=== PATIENT | male | born 1940 | race Caucasian/White ===

== ENCOUNTER → 2016-05-31 | Outpatient (CLI) | payer MEDICARE, OTHER ==
[~2016-05-31] MED LIST: ASPI81TA60 PO; BACITAB3 PO; BENI20TA3 PO; DIGO0.12 PO; FURO20TA2 PO; IBUP200C PO; INSUDET SC; LEVA250T PO; MEST60TA PO; METO-207 PO; MUCU400T8 PO; MYCO500T PO; NITR4PA TD; OXYC1TAB23 PO; PLAV75TA38 PO; PROBCAP4 PO; PROT1TAB2 PO; XARE20TA PO; [UNRECOGNIZED DRUG - CODE] PO
[2016-05-31 18:47] LABS: BASO % 0.7 % (0.0-1.0); EOS # 0.2 K/mm3 (0.0-0.50); LARGE UNSTAINED CELL # 0.2 K/mm3 (0.0-0.4); LARGE UNSTAINED CELL % 3.2 % (0.0-4.0); LYMPH # 1.7 K/mm3 (1.5-4.5); LYMPH % 28.5 % (24.0-44.0); MEAN CORPUSCULAR HEMOGLOBIN 27.4 pg (27.0-33.0); MEAN CORPUSCULAR HGB CONC 33.5 g/dl (32.0-36.5); MEAN CORPUSCULAR VOLUME 81.7 fl (80.0-96.0); MONO # 0.3 K/mm3 (0.0-0.8); MONO % 5.2 % (0.0-5.0); NEUTROPHILS # 3.5 K/mm3 (1.8-7.7); NEUTROPHILS % 58.4 % (36.0-66.0); PLATELET COUNT, AUTOMATED 237 k/mm3 (150-450); RED CELL DISTRIBUTION WIDTH 13.4 % (11.5-14.5)
== END | disposition home or self-care (01) ==
LOC: M LAB 18:00
PROVIDERS: ATTEND Psychiatry & Neurology Neurology
DX: G70.00 Myasthenia gravis without (acute) exacerbation (principal)

== ENCOUNTER 2016-07-15 14:26 | Emergency (ER) | payer MEDICARE, BC, OTHER ==
[~2016-07-15] VITALS: Ht 175.3 cm; Wt 104.3 kg
[2016-07-15] MEDS ORDERED: STOO100C PO (15:07)
[2016-07-15] MEDS ORDERED: NOVO70VL SC (15:07)
[2016-07-15] MEDS ORDERED: METO25TA74 PO (15:07)
[2016-07-15] MEDS ORDERED: TRAD5TAB PO (15:07)
[2016-07-15] MEDS ORDERED: RANO5TAB PO (15:07)
[2016-07-15] MEDS ORDERED: VITA100072 PO (15:07)
[2016-07-15] MEDS ORDERED: FLOM5CAP PO (15:07)
[2016-07-15] MEDS ORDERED: [UNRECOGNIZED DRUG - CODE] PO (15:07)
[2016-07-15] MEDS ORDERED: PROBCAP4 PO (15:07)
[2016-07-15] MEDS ORDERED: FEXO180T58 PO (15:07)
[2016-07-15] MEDS ORDERED: CALCD50TA PO (15:07)
[2016-07-15] MEDS ORDERED: FERR325T3 PO (15:07)
[2016-07-15] MEDS ORDERED: BENI20TA3 PO (15:07)
[2016-07-15] MEDS ORDERED: MECL-86 PO (15:07)
[2016-07-15] MEDS ORDERED: AMLO5TAB2 PO (15:07)
[2016-07-15 15:38] LABS: BASO % 0.6 % (0.0-1.0); EOS # 0.3 K/mm3 (0.0-0.50); EOS % 4.3 % (0.0-3.0); LARGE UNSTAINED CELL # 0.1 K/mm3 (0.0-0.4); LARGE UNSTAINED CELL % 1.9 % (0.0-4.0); LYMPH # 1.3 K/mm3 (1.5-4.5); LYMPH % 16.2 % (24.0-44.0); MEAN CORPUSCULAR HEMOGLOBIN 28.2 pg (27.0-33.0); MEAN CORPUSCULAR HGB CONC 34.9 g/dl (32.0-36.5); MEAN CORPUSCULAR VOLUME 80.9 fl (80.0-96.0); MONO # 0.5 K/mm3 (0.0-0.8); MONO % 7.4 % (0.0-5.0); NEUTROPHILS # 4.9 K/mm3 (1.8-7.7); NEUTROPHILS % 69.6 % (36.0-66.0); PLATELET COUNT, AUTOMATED 223 k/mm3 (150-450); RED CELL DISTRIBUTION WIDTH 13.2 % (11.5-14.5)
[2016-07-15 15:57] LABS: INR 1.32
[2016-07-15 16:05] LABS: ANION GAP 11 MEQ/L (8-16); BLOOD UREA NITROGEN 16 MG/DL (7-18); CALCIUM LEVEL 8.2 MG/DL (8.8-10.2); CARBON DIOXIDE LEVEL 23 MEQ/L (21-32); CHLORIDE LEVEL 108 MEQ/L (98-107); CREATININE FOR GFR 1.46 MG/DL (0.70-1.30); GLUCOSE, FASTING 122 MG/DL (83-110); POTASSIUM SERUM 4.2 MEQ/L (3.5-5.1); SODIUM LEVEL 142 MEQ/L (136-145)
[2016-07-15 16:15] LABS: DIGOXIN LEVEL 0.8 NG/ML (0.5-2.0)
[2016-07-15 20:18] VITALS: BP 165/78
--- NOTE | 2016-07-15 20:22 | ECGEPIP ---
Stationary ECG Study [facility] - ED Test Date: 2016-07-15 Pat Name: DOREEN RODRIGUEZ Department: Room: - Gender: M [employer]: zane : [id number] Requested By: ROSHAN Sánchez Order Number: [id number] Reading MD: Teri Hill Measurements Intervals [place] Rate: 66 P: 17 LA: 186 QRS: 67 QRSD: 105 T: 39 QT: 374 QTc: 393 Interpretive Statements SINUS RHYTHM NONSPECIFIC ST & T-WAVE ABNORMALITY INCREASED RATE 05/30/11 Electronically Signed On 07-15-2016 20:21:57 EST by Teri Hill
--- NOTE | 2016-07-16 07:58 | REP ---
CHEST, TWO VIEWS: Two views of the chest are performed and compared to the prior study of 05/30/2011. There is mild bibasilar fibrotic change. The heart does not appear to be significantly enlarged. The mediastinal silhouette is unchanged. Multiple sternal wires and mediastinal clips are present. A left dual-lead pacemaker is noted. There are degenerative changes of the spine. IMPRESSION: Stable chronic findings. No acute pulmonary disease. Signed by Tyler Patel MD 07/16/2016 04:10 P
--- NOTE | 2016-07-16 08:10 | REP ---
CT CHEST WITHOUT IV CONTRAST: CT chest is performed without IV contrast. Sagittal and coronal reconstruction images are performed. Comparison made with a prior study of 02/17/2013. There are scattered interstitial fibrotic changes which appear relatively stable bilaterally. There is diffuse bronchiectasis again seen. A 6 mm nodule in the left upper lobe is stable and benign. No infiltrates are seen. The heart is not enlarged. There is no pleural or pericardial effusion. Nonenlarged lymph nodes are seen in the mediastinum. There is no thoracic aortic aneurysm. Mild scattered atherosclerotic calcifications are present. Multiple sternal wires and mediastinal clips are present. Pacemaker leads are seen. In the visualized portions of the upper abdomen, no gross abnormality is seen. There are degenerative changes of the spine. IMPRESSION: Chronic lung changes appear relatively stable since the 2013 CT exam. No evidence of acute pulmonary disease. Signed by Tyler Patel MD 07/16/2016 04:11 P
== END 2016-07-15 20:32 | disposition home or self-care (01) ==
LOC: M ED 15:31
DX: J06.9 Acute upper respiratory infection, unspecified (principal); R06.02 Shortness of breath; I10 Essential (primary) hypertension; E11.9 Type 2 diabetes mellitus without complications; I48.91 Unspecified atrial fibrillation; K21.9 Gastro-esophageal reflux disease without esophagitis; D64.9 Anemia, unspecified; N40.0 Benign prostatic hyperplasia without lower urinary tract symptoms; G70.00 Myasthenia gravis without (acute) exacerbation; Z79.899 Other long term (current) drug therapy; Z79.4 Long term (current) use of insulin; Z79.01 Long term (current) use of anticoagulants; Z88.8 Allergy status to other drugs, medicaments and biological substances; Z87.891 Personal history of nicotine dependence

== ENCOUNTER → 2016-09-03 | Outpatient (CLI) | payer MEDICARE, BC, OTHER ==
[~2016-09-03] MED LIST changes: +AMLO5TAB2 PO; +CALCD50TA PO; +FERR325T3 PO; +FEXO180T58 PO; +FLOM5CAP PO; +MECL-86 PO; +METO25TA74 PO; +NOVO70VL SC; +RANO5TAB PO; +STOO100C PO; +TRAD5TAB PO; +VITA100072 PO
[2016-09-03 09:26] LABS: BASO # 0.1 K/mm3 (0.0-0.2); BASO % 0.9 % (0.0-1.0); EOS # 0.2 K/mm3 (0.0-0.50); EOS % 3.7 % (0.0-3.0); LARGE UNSTAINED CELL # 0.2 K/mm3 (0.0-0.4); LARGE UNSTAINED CELL % 2.7 % (0.0-4.0); LYMPH % 32.2 % (24.0-44.0); MEAN CORPUSCULAR HEMOGLOBIN 28.3 pg (27.0-33.0); MEAN CORPUSCULAR HGB CONC 33.5 g/dl (32.0-36.5); MEAN CORPUSCULAR VOLUME 84.4 fl (80.0-96.0); MONO # 0.4 K/mm3 (0.0-0.8); MONO % 6.7 % (0.0-5.0); NEUTROPHILS # 3.4 K/mm3 (1.8-7.7); NEUTROPHILS % 53.8 % (36.0-66.0); PLATELET COUNT, AUTOMATED 222 k/mm3 (150-450); RED CELL DISTRIBUTION WIDTH 13.6 % (11.5-14.5); WHITE BLOOD COUNT 6.3 K/mm3 (4.0-10.0)
== END ==
LOC: M LAB 08:51
PROVIDERS: ATTEND Psychiatry & Neurology Neurology
DX: G70.00 Myasthenia gravis without (acute) exacerbation (principal)

== ENCOUNTER → 2016-11-29 | Outpatient (CLI) | payer MEDICARE, BC, OTHER ==
[~2016-11-29] MED LIST changes: +BACITAB PO; -BACITAB3 PO; +BENI20TA18 PO; -BENI20TA3 PO; -IBUP200C PO; +IBUP200C10 PO; +LEVA1TAB PO; -LEVA250T PO; -METO-207 PO; +METO1TAB32 PO; +METO1TAB7 PO; -METO25TA74 PO; +PLAV1TAB2 PO; -PLAV75TA38 PO
[2016-11-29 12:14] LABS: BASO % 0.8 % (0.0-1.0); EOS # 0.2 K/mm3 (0.0-0.50); EOS % 3.1 % (0.0-3.0); LARGE UNSTAINED CELL # 0.2 K/mm3 (0.0-0.4); LARGE UNSTAINED CELL % 2.6 % (0.0-4.0); LYMPH # 1.9 K/mm3 (1.5-4.5); LYMPH % 30.6 % (24.0-44.0); MEAN CORPUSCULAR HEMOGLOBIN 28.3 pg (27.0-33.0); MEAN CORPUSCULAR HGB CONC 34.3 g/dl (32.0-36.5); MEAN CORPUSCULAR VOLUME 82.7 fl (80.0-96.0); MONO # 0.4 K/mm3 (0.0-0.8); MONO % 7.3 % (0.0-5.0); NEUTROPHILS # 3.2 K/mm3 (1.8-7.7); NEUTROPHILS % 55.6 % (36.0-66.0); PLATELET COUNT, AUTOMATED 216 k/mm3 (150-450); RED CELL DISTRIBUTION WIDTH 13.3 % (11.5-14.5); WHITE BLOOD COUNT 5.8 K/mm3 (4.0-10.0)
== END ==
LOC: M LAB 11:19
PROVIDERS: ATTEND Psychiatry & Neurology Neurology
DX: G70.00 Myasthenia gravis without (acute) exacerbation (principal)

== ENCOUNTER → 2018-07-29 | Outpatient (CLI) | payer MEDICARE, BC, OTHER ==
[~2018-07-29] MED LIST changes: -AMLO5TAB2 PO; +AMLO5TAB6 PO; +FLOM0.4C39 PO; -FLOM5CAP PO; -IBUP200C10 PO; +IBUP200C25 PO; -LEVA1TAB PO; +LEVA250T13 PO; -MUCU400T8 PO; +MUCU400T9 PO
[2018-07-29 15:49] LABS: BASO % 0.6 % (0.0-1.0); EOS # 0.3 10^3/uL (0.0-0.50); EOS % 3.6 % (0.0-3.0); HEMATOCRIT 41.1 % (42.0-52.0); HEMOGLOBIN 13.4 g/dl (13.5-17.5); LYMPH # 2.4 10^3/uL (1.5-4.5); LYMPH % 34.6 % (24.0-44.0); MEAN CORPUSCULAR HEMOGLOBIN 27.5 pg (27.0-33.0); MEAN CORPUSCULAR HGB CONC 32.6 g/dl (32.0-36.5); MEAN CORPUSCULAR VOLUME 84.4 fl (80.0-96.0); MONO # 0.8 10^3/uL (0.0-0.8); NEUTROPHILS # 3.4 10^3/uL (1.8-7.7); NEUTROPHILS % 48.8 % (36.0-66.0); PLATELET COUNT, AUTOMATED 244 10^3/uL (150-450); RED BLOOD COUNT 4.87 10^6/uL (4.30-6.10); WHITE BLOOD COUNT 6.9 10^3/uL (4.0-10.0)
== END ==
LOC: M LAB 15:27
PROVIDERS: ATTEND Psychiatry & Neurology Neurology
DX: G70.00 Myasthenia gravis without (acute) exacerbation (principal)

== ENCOUNTER → 2018-10-31 | Outpatient (CLI) | payer MEDICARE, BC, OTHER ==
[~2018-10-31] MED LIST changes: -NITR4PA TD; +VITA100018 PO; -VITA100072 PO; +[UNRECOGNIZED DRUG - CODE] TD
[2018-10-31 13:17] LABS: EOS # 0.4 10^3/uL (0.0-0.50); EOS % 5.5 % (0.0-3.0); HEMATOCRIT 39.9 % (42.0-52.0); HEMOGLOBIN 13.2 g/dl (13.5-17.5); LYMPH # 2.1 10^3/uL (1.5-4.5); LYMPH % 33.8 % (24.0-44.0); MEAN CORPUSCULAR HEMOGLOBIN 28.1 pg (27.0-33.0); MEAN CORPUSCULAR HGB CONC 33.1 g/dl (32.0-36.5); MEAN CORPUSCULAR VOLUME 84.9 fl (80.0-96.0); MONO # 0.6 10^3/uL (0.0-0.8); MONO % 8.8 % (0.0-5.0); NEUTROPHILS # 3.3 10^3/uL (1.8-7.7); NEUTROPHILS % 51.4 % (36.0-66.0); PLATELET COUNT, AUTOMATED 224 10^3/uL (150-450); WHITE BLOOD COUNT 6.3 10^3/uL (4.0-10.0)
== END ==
LOC: M LAB 12:05
PROVIDERS: ATTEND Psychiatry & Neurology Neurology
DX: G70.00 Myasthenia gravis without (acute) exacerbation (principal)

== ENCOUNTER → 2019-01-29 | Outpatient (CLI) | payer MEDICARE, BC, OTHER ==
[~2019-01-29] MED LIST changes: +MM S100C PO; -MUCU400T9 PO; +RANO500T7 PO; -RANO5TAB PO; -STOO100C PO; +[UNRECOGNIZED DRUG - CODE] PO
[2019-01-29 19:28] LABS: BASO % 0.5 % (0.0-1.0); EOS # 0.3 10^3/uL (0.0-0.5); EOS % 5.5 % (0.0-3.0); HEMATOCRIT 36.9 % (42.0-52.0); HEMOGLOBIN 11.6 g/dl (13.5-17.5); LYMPH # 2.4 10^3/uL (1.5-5.0); LYMPH % 39.6 % (24.0-44.0); MEAN CORPUSCULAR HEMOGLOBIN 26.1 pg (27.0-33.0); MEAN CORPUSCULAR HGB CONC 31.4 g/dl (32.0-36.5); MEAN CORPUSCULAR VOLUME 83.1 fl (80.0-96.0); MONO # 0.6 10^3/uL (0.0-0.8); MONO % 10.3 % (0.0-5.0); NEUTROPHILS # 2.7 10^3/uL (1.5-8.5); NEUTROPHILS % 43.8 % (36.0-66.0); PLATELET COUNT, AUTOMATED 264 10^3/uL (150-450); RED BLOOD COUNT 4.44 10^6/uL (4.30-6.10); WHITE BLOOD COUNT 6.1 10^3/uL (4.0-10.0)
== END ==
LOC: M LAB 16:50
PROVIDERS: ATTEND Psychiatry & Neurology Neurology
DX: G70.00 Myasthenia gravis without (acute) exacerbation (principal)

== ENCOUNTER → 2019-04-25 | Outpatient (CLI) | payer MEDICARE, BC, OTHER ==
[2019-04-25 16:14] LABS: BASO % 0.6 % (0.0-1.0); EOS # 0.3 10^3/uL (0.0-0.5); EOS % 4.9 % (0.0-3.0); HEMATOCRIT 41.1 % (42.0-52.0); LYMPH # 2.2 10^3/uL (1.5-5.0); LYMPH % 33.6 % (24.0-44.0); MEAN CORPUSCULAR HEMOGLOBIN 25.5 pg (27.0-33.0); MEAN CORPUSCULAR HGB CONC 31.6 g/dl (32.0-36.5); MEAN CORPUSCULAR VOLUME 80.7 fl (80.0-96.0); MONO # 0.6 10^3/uL (0.0-0.8); MONO % 9.2 % (0.0-5.0); NEUTROPHILS # 3.3 10^3/uL (1.5-8.5); NEUTROPHILS % 51.4 % (36.0-66.0); PLATELET COUNT, AUTOMATED 201 10^3/uL (150-450); RED BLOOD COUNT 5.09 10^6/uL (4.30-6.10); WHITE BLOOD COUNT 6.5 10^3/uL (4.0-10.0)
== END ==
LOC: M LAB 15:36
PROVIDERS: ATTEND Psychiatry & Neurology Neurology
DX: G70.00 Myasthenia gravis without (acute) exacerbation (principal)

== ENCOUNTER → 2021-04-25 | Outpatient (CLI) | payer MEDICARE, BC, OTHER ==
[~2021-04-25] MED LIST changes: +ACYC1TAB PO; +ALLO100T PO; +AMLO1TAB24 PO; -AMLO5TAB6 PO; +APPL300T4 PO; +ASPI81CH33 PO; +BACT400T PO; +BAYE325T12 PO; +BENA25CA4 PO; +BUDE0.254 NEB; +CENT1TAB PO; +CYPR4TA PO; +DIGO0.123 PO; +DOCU250C7 PO; +ELIQ2.5T PO; +FLON1SPR NARES; +GLUC1TAB58 PO; +GNP250TA9 PO; +HYDR-3713 PO; +HYDR1CRE30 TOP; +IMBR1CAP PO; +INSULANT SC; +IPRA0.00 NEB; +ISOS1TAB35 PO; +LANO62.5 PO; +MELA5TAB11 PO; +NITR0.4D6 TD; +OLME1TAB49 PO; +OZEM2INJ SC; +PRED5EL PO; +PRED5TA PO; +PROBCAP14 PO; +PROSCAP PO; +QC F0.52 PO; +SENN-85 PO; +SM M250T PO; +SUCR1TAB56 PO; +TEST1GEL10 PO; +VITA-243 PO
== END ==
LOC: M RAD 12:51
PROVIDERS: ATTEND Internal Medicine Hematology & Oncology
DX: C83.18 Mantle cell lymphoma, lymph nodes of multiple sites (principal); J90 Pleural effusion, not elsewhere classified; Z79.899 Other long term (current) drug therapy

== ENCOUNTER → 2021-05-08 | Outpatient (CLI) | payer MEDICARE, BC, OTHER ==
[~2021-05-08] MED LIST changes: -ACYC1TAB PO; -BACT400T PO; -BAYE325T12 PO; -CYPR4TA PO; -DIGO0.123 PO; -DOCU250C7 PO; -GNP250TA9 PO; -HYDR-3713 PO; -IMBR1CAP PO; -LANO62.5 PO; +LIDOCAINE 1% MDV 20ML VIAL As Ordered ONE; -OLME1TAB49 PO; -PRED5EL PO; -PRED5TA PO; -SENN-85 PO
[2021-05-08 12:55] LABS: HEMATOCRIT 31.5 % (42.0-52.0); HEMOGLOBIN 9.4 g/dl (13.5-17.5); MEAN CORPUSCULAR HEMOGLOBIN 25.4 pg (27.0-33.0); MEAN CORPUSCULAR HGB CONC 29.8 g/dl (32.0-36.5); MEAN CORPUSCULAR VOLUME 85.1 fl (80.0-96.0); PLATELET COUNT, AUTOMATED 206 10^3/uL (150-450); WHITE BLOOD COUNT 15.8 10^3/uL (4.0-10.0)
[2021-05-08 14:15] VITALS: BP 107/52
--- NOTE | 2021-05-08 16:49 | REP ---
INDICATION: LYMPHOMA, ANEMIA. COMPARISON: None. TECHNIQUE: The procedure was procedure performed under the direct supervision of Dr. Patel. The risks and benefits of the procedure were explained to the patient and informed consent was obtained. The right iliac bone was localized using CT guidance. The skin was prepped and draped in a sterile fashion. 6 mL of 1% lidocaine was used as local anesthetic. Using CT guidance an 11 gauge bone marrow biopsy system was inserted. Seven mL of marrow fluid was withdrawn. One core biopsy sample was then obtained. Estimated blood loss: Less than 1 mL The patient tolerated the procedure well and there were no immediate complications. After the appropriate amount to monitored convalescence the patient was discharged from the department. FINDINGS: None IMPRESSION: CT-guided right iliac bone marrow biopsy. <Electronically signed by Chris Wright > 05/08/21 [id number] <Electronically signed by Tyler Patel > 05/08/21 [id number]
== END ==
LOC: M IRPRO 12:12
PROVIDERS: ATTEND Internal Medicine Hematology & Oncology
DX: C91.90 Lymphoid leukemia, unspecified not having achieved remission (principal); D61.9 Aplastic anemia, unspecified; D72.829 Elevated white blood cell count, unspecified

== ENCOUNTER → 2021-05-15 | Outpatient (CLI) | payer MEDICARE, BC, OTHER ==
[~2021-05-15] MED LIST changes: -LIDOCAINE 1% MDV 20ML VIAL As Ordered ONE
--- NOTE | 2021-05-16 10:04 | REP ---
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 COMPARISON: None. TECHNIQUE: After the intravenous administration of 8.95 mCi of FDG 18 triplane whole-body PET-CT was performed from the skull base TO MID THIGH. NONCONTRAST HELICAL CT IMAGING WAS PERFORMED OVER THE SAME RANGE WITHOUT BREATH HOLD FOR ATTENUATION CORRECTION OF PET IMAGES AND ANATOMIC CORRELATION, BUT NOT FOR PRIMARY INTERPRETATION IT IS NOT OF STANDARD DIAGNOSTIC QUALITY. FINDINGS: There is a focus of hypermetabolic activity seen in the left neck at the level of the thyroid cartilage and having a maximal SUV value of 2.58. This is within a nodule with a maximal dimension of approximately 1.4 cm. This area cannot be effectively evaluated on today's nondiagnostic CT. The mediastinal adenopathy seen on the prior diagnostic CT scan of the chest of 04/25/2021 is hypermetabolic with a maximal SUV value of 3.2. There is multifocal hypermetabolism seen in the pericardial adipose at the level of the inferior anterior mediastinum within multiple nodules of various sizes ranging from approximately 1 cm to approximately 2.5 cm. The maximal SUV value of these hypermetabolic foci is 4.7. Although today's CT scan is nondiagnostic these regions appear unchanged. There is an additional hypermetabolic focus seen in the right upper quadrant anterior to the hepatic edge having a maximal SUV value of 3.69. This measures approximately 1.9 cm. Multiple hypermetabolic nodules are seen in the region of the gastrohepatic ligament having a maximal SUV value of 3.97. These areas cannot be effectively evaluated on the nondiagnostic CT obtained today. There is an approximately 1.4 cm sized hypermetabolic nodule seen anterior to the anterior splenic edge having a maximal SUV value of 3.09. There is para-aortic adenopathy which is rather extensive in appearance with a maximal SUV value of 3.58 in the largest node which measures approximately 2.3 cm. These areas cannot be effectively evaluated on today's nondiagnostic CT. There is hypermetabolic right pelvic sidewall adenopathy with a maximal SUV value of 2.63. The maximal dimension of this lymph node is approximately 2.4 cm, however, it cannot be effectively evaluated on today's nondiagnostic CT. No other areas of abnormal hypermetabolic activity are seen in the neck, chest, abdomen, or pelvis. IMPRESSION: Areas of abnormal hypermetabolism seen in the neck, chest, abdomen, and pelvis as described above. Follow-up with diagnostic CT examinations. <Electronically signed by Rafita Nuñez > 05/16/21 1000
== END ==
LOC: M PLARAD 15:48
PROVIDERS: ATTEND Internal Medicine Hematology & Oncology
DX: R93.89 Abnormal findings on diagnostic imaging of other specified body structures (principal); C83.18 Mantle cell lymphoma, lymph nodes of multiple sites
CPT/HCPCS: 78815; A9552

== ENCOUNTER → 2021-06-05 | Outpatient (CLI) | payer MEDICARE, BC, OTHER ==
[~2021-06-05] MED LIST changes: +ACYC1TAB PO; +BACT400T PO; +CYPR4TA PO; +GNP250TA9 PO; +LANO62.5 PO; +LIDOCAINE 1% MDV 20ML VIAL As Ordered ONE; +MIDAZOLAM INJ 2MG/2ML VIAL (J2250 PER 1MG) As Ordered ONE; +NS 1,000 ML IV SCH; +PRED5EL PO; +PRED5TA PO; +ceFAZolin 2 GM/D5W 50 ML IV BAG (J0690 PER 500MG) As Ordered ONE; +ceFAZolin SOD 2 GM in IV 1 EA IV ONE; +diphenhydrAMINE 50MG/ML VIAL (J1200) As Ordered ONE; +fentaNYL 100 MCG/2 ML INJECTION (J3010) As Ordered ONE
[2021-06-05] MEDS: NS 1,000 ML IV SCH (08:41)
[2021-06-05] MEDS: ceFAZolin SOD 2 GM in IV 1 EA IV ONE (10:43)
[2021-06-05 13:30] VITALS: BP 129/62
== END ==
LOC: M IRPRO 07:47
PROVIDERS: ATTEND Specialist
DX: C83.10 Mantle cell lymphoma, unspecified site (principal); R31.0 Gross hematuria; Z79.82 Long term (current) use of aspirin; Z79.899 Other long term (current) drug therapy; Z88.8 Allergy status to other drugs, medicaments and biological substances; Z91.048 Other nonmedicinal substance allergy status
CPT/HCPCS: 36561; 81001; 87086; 88108; 99152; 99153; C1769; C1788; C1894; J0690; J1642; J1644; J2250; J3010

== ENCOUNTER → 2021-06-05 | Outpatient (REF) | payer MEDICARE, OTHER, BC ==
[~2021-06-05] MED LIST changes: -LIDOCAINE 1% MDV 20ML VIAL As Ordered ONE; -MIDAZOLAM INJ 2MG/2ML VIAL (J2250 PER 1MG) As Ordered ONE; -NS 1,000 ML IV SCH; -PRED5EL PO; -PRED5TA PO; -ceFAZolin 2 GM/D5W 50 ML IV BAG (J0690 PER 500MG) As Ordered ONE; -ceFAZolin SOD 2 GM in IV 1 EA IV ONE; -diphenhydrAMINE 50MG/ML VIAL (J1200) As Ordered ONE; -fentaNYL 100 MCG/2 ML INJECTION (J3010) As Ordered ONE
[2021-06-05 09:58] LABS: APPEARANCE, URINE HAZY (CLEAR); BACTERIA, URINE AUTO NEGATIVE (NEGATIVE); BILIRUBIN, URINE AUTO NEGATIVE (NEGATIVE); BLOOD, URINE BLOOD NEGATIVE (NEGATIVE); COLOR, URINE YELLOW (YELLOW); GLUCOSE, URINE (UA) AUTO NEGATIVE (NEGATIVE); KETONE, URINE AUTO NEGATIVE (NEGATIVE); LEUKOCYTE ESTERASE, URINE AUTO NEGATIVE (NEGATIVE); MUCUS, URINE SMALL (NEGATIVE); NITRITE, URINE AUTO NEGATIVE (NEGATIVE); PROTEIN, URINE AUTO 1+ mg/dL (NEGATIVE); RBC, URINE AUTO 2 /HPF (0-3); SPECIFIC GRAVITY URINE AUTO 1.017 (1.002-1.035); SQUAMOUS EPITHELIAL CELL UR AU 0 /HPF (0-6); UROBILINOGEN, URINE AUTO 0.2 mg/dL (0.0-2.0); WBC, URINE AUTO 1 /HPF (0-3)
== END ==
LOC: M SMT 08:44
PROVIDERS: ATTEND Nurse Practitioner Women's Health
DX: R31.0 Gross hematuria (principal)

== ENCOUNTER 2021-06-17 15:25 | Inpatient (IN) | payer MEDICARE, BC, OTHER ==
[~2021-06-17] VITALS: Ht 177.8 cm; Wt 84.2 kg
[~2021-06-17 15:25] MED LIST changes: +FEXO-117 PO; -FEXO180T58 PO; +HYDR-3713 PO; +PRED5EL PO; +PRED5TA PO
[2021-06-17] MEDS ORDERED: SODIUM CHLORIDE 0.9% INJ 10 ML SYR IV PRN ×2 (16:05→22:05)
[2021-06-17] MEDS ORDERED: NS 1,000 ML IV ONE (17:35)
[2021-06-17 17:48] LABS: MEAN CORPUSCULAR HEMOGLOBIN 26.4 pg (27.0-33.0); MEAN CORPUSCULAR HGB CONC 30.9 g/dl (32.0-36.5); MEAN CORPUSCULAR VOLUME 85.3 fl (80.0-96.0); PLATELET COUNT, AUTOMATED 173 10^3/uL (150-450); RED BLOOD COUNT 2.58 10^6/uL (4.30-6.10); WHITE BLOOD COUNT 15.4 10^3/uL (4.0-10.0)
[2021-06-17 17:59] LABS: HEMOGLOBIN 6.8 g/dl (13.5-17.5)
[2021-06-17 18:07] LABS: RSV AMPLIFICATION NEGATIVE (NEGATIVE)
[2021-06-17 18:17] LABS: ALBUMIN 2.6 GM/DL (3.2-5.2); BILIRUBIN,DIRECT 0.2 MG/DL (0.0-0.2); BILIRUBIN,TOTAL 0.4 MG/DL (0.2-1.0); CALCIUM LEVEL 8.2 MG/DL (8.8-10.2); CREATININE FOR GFR 2.74 MG/DL (0.70-1.30); GLOMERULAR FILTRATION RATE 23.9 (>35); POTASSIUM SERUM 4.7 MEQ/L (3.5-5.1); TOTAL PROTEIN 4.9 GM/DL (6.4-8.2)
[2021-06-17 18:25] LABS: ATYPICAL LYMPH 11 % (0-5); BLAST CELLS 2 % (0-0); LYMPHOCYTES 70 % (16-44); MONOCYTES 1 % (0-5); NEUTROPHILS 16 % (28-66)
[2021-06-17 18:27] LABS: ANISOCYTOSIS 1+; PLATELET ESTIMATE NORMAL (NORMAL)
[2021-06-17 19:15] LABS: DIGOXIN LEVEL 0.8 NG/ML (0.5-2.0)
[2021-06-17] MEDS ORDERED: DOCU250C7 PO (19:28)
[2021-06-17] MEDS ORDERED: OLME1TAB49 PO (19:28)
[2021-06-17] MEDS ORDERED: SENN-85 PO (19:28)
[2021-06-17] MEDS ORDERED: DIGO0.123 PO (19:28)
[2021-06-17] MEDS ORDERED: BAYE325T12 PO (19:28)
[2021-06-17] MEDS ORDERED: HOME MED LIST COMPLETE! XX SCH (19:30)
[2021-06-17] MEDS ORDERED: ACETAMINOPHEN TAB 650MG DOSE (2X325MG) PO PRN (19:45)
[2021-06-17] MEDS ORDERED: diphenhydrAMINE 25MG CAP PO PRN (19:50)
[2021-06-17] MEDS ORDERED: FLUTICASONE PROP 0.05% NASAL SPRAY 16 GM (FLONASE) NARES PRN (19:50)
[2021-06-17 20:18] VITALS: BP 111/56
[2021-06-17 20:35] VITALS: BP 111/55
[2021-06-17 20:35] LABS: FERRITIN 528 NG/ML (26-388); IRON (FE) 100 UG/DL (65-175); PERCENT SATURATION 66.2 % (19.7-50.0); TOTAL IRON BINDING CAPACITY 151 UG/DL (250-450)
[2021-06-17 20:50] LABS: INR 1.3; PROTHROMBIN TIME 16.6 SECONDS (12.7-14.5)
[2021-06-17 20:51] LABS: PARTIAL THROMBOPLASTIN TIME 40.2 SECONDS (25.9-37.0)
[2021-06-17 21:11] VITALS: BP 117/49
[2021-06-17] MEDS: SUCRALFATE SUSP 1GM/10ML UD PO SCH (21:52)
[2021-06-17] MEDS: TAMSULOSIN 0.4 MG CAP PO SCH (21:52)
[2021-06-17] MEDS: METOPROLOL SUCC *XL* 25MG TAB (TopROL *XL*) PO SCH (21:53)
[2021-06-17] MEDS: MECLIZINE 25 MG TABLET PO SCH (21:53)
[2021-06-17] MEDS: LEVEMIR (INSULIN DETEMIR) 1 UNITS/0.01ML SC SCH (21:54)
[2021-06-17] MEDS: **NOTE PATIENT COMMENT** MISC XX SCH (21:55)
[2021-06-17] MEDS: PIPERACILLIN/TAZOBACTAM SOD 2.25 GM in D5W MINI-BAG PLUS 50 ML IV SCH (22:22)
[2021-06-17] MEDS: PANTOPRAZOLE 40MG VIAL (C9113 PER 1) IV SCH (22:22)
[2021-06-17] MEDS: RANOLAZINE 500 MG ER TAB PO SCH (22:51)
[2021-06-17] MEDS: PYRIDOSTIGMINE 60MG TABLET PO SCH (22:51)
[2021-06-17] MEDS: MYCOPHENOLATE MOFETIL 250 MG CAP (J7517) PO SCH (22:52)
[2021-06-17] MEDS: OLMESARTAN MEDOXOMIL 20 MG TAB (BENICAR) PO SCH (22:52)
[2021-06-18] VITALS (8 sets, daily range): BP systolic 94–104; BP diastolic 40–56
[2021-06-18 00:24] LABS: HEMATOCRIT 25.4 % (42.0-52.0)
[2021-06-18] MEDS: HumaLOG INSULIN (NovoLOG) PER UNIT SC SCH ×6 (00:35→20:52)
[2021-06-18] MEDS ORDERED: GLUCAGON INJ 1MG VIAL SC PRN (00:35)
[2021-06-18] MEDS ORDERED: GLUCOSE 4GM CHEW TABLET PO PRN (00:35)
[2021-06-18] MEDS ORDERED: DEXTROSE 50% 50 ML SYRINGE IV PRN (00:35)
[2021-06-18] MEDS: D5W/0.45% SODIUM CHLORIDE 1,000 ML IV SCH ×4 (00:36→22:21)
[2021-06-18] MEDS ORDERED: MORPHINE 2 MG/ML 1ML VIAL (J2270) IV PRN (00:50)
[2021-06-18] MEDS: MORPHINE 4 MG/ML 1ML VIAL/SYRINGE (J2270) IV PRN ×2 (01:07→21:32)
[2021-06-18] MEDS: PIPERACILLIN/TAZOBACTAM SOD 2.25 GM in D5W MINI-BAG PLUS 50 ML IV SCH ×4 (04:02→22:21)
[2021-06-18] MEDS: PYRIDOSTIGMINE 60MG TABLET PO SCH ×3 (05:40→21:31)
[2021-06-18 07:00] LABS: MEAN CORPUSCULAR HEMOGLOBIN 26.8 pg (27.0-33.0); MEAN CORPUSCULAR HGB CONC 30.3 g/dl (32.0-36.5); MEAN CORPUSCULAR VOLUME 88.2 fl (80.0-96.0); PLATELET COUNT, AUTOMATED 147 10^3/uL (150-450); RED BLOOD COUNT 2.28 10^6/uL (4.30-6.10); WHITE BLOOD COUNT 13.2 10^3/uL (4.0-10.0)
[2021-06-18 07:16] LABS: HEMATOCRIT 20.1 % (42.0-52.0); HEMOGLOBIN 6.1 g/dl (13.5-17.5)
[2021-06-18] MEDS: BUDESONIDE 0.5 MG/2 ML INHALATION SUSPENSION NEB SCH ×2 (07:16→19:30)
[2021-06-18 07:23] LABS: CALCIUM LEVEL 7.8 MG/DL (8.8-10.2); CREATININE FOR GFR 2.83 MG/DL (0.70-1.30); POTASSIUM SERUM 4.3 MEQ/L (3.5-5.1)
[2021-06-18] MEDS: SUCRALFATE SUSP 1GM/10ML UD PO SCH ×4 (08:26→21:31)
[2021-06-18] MEDS: MYCOPHENOLATE MOFETIL 250 MG CAP (J7517) PO SCH ×2 (08:26→21:31)
[2021-06-18] MEDS: FEXOFENADINE 60 MG TAB PO SCH (08:27)
[2021-06-18] MEDS: LEVEMIR (INSULIN DETEMIR) 1 UNITS/0.01ML SC SCH ×2 (08:28→21:47)
[2021-06-18] MEDS: RANOLAZINE 500 MG ER TAB PO SCH ×2 (08:28→21:31)
[2021-06-18] MEDS: PANTOPRAZOLE 40MG VIAL (C9113 PER 1) IV SCH ×2 (08:28→21:31)
[2021-06-18] MEDS: DIGOXIN 0.125 MG TAB PO SCH (08:29)
[2021-06-18] MEDS: FERROUS SULFATE 325MG TAB PO SCH (08:29)
[2021-06-18] MEDS: METOPROLOL SUCC *XL* 25MG TAB (TopROL *XL*) PO SCH ×2 (08:29→20:52)
[2021-06-18] MEDS: MECLIZINE 25 MG TABLET PO SCH ×2 (08:29→21:31)
[2021-06-18 08:37] LABS: ATYPICAL LYMPH 8 % (0-5); BLAST CELLS 2 % (0-0); LYMPHOCYTES 63 % (16-44); MONOCYTES 4 % (0-5); NEUTROPHILS 23 % (28-66)
[2021-06-18 08:45] LABS: OVALOCYTES 2+; PLATELET ESTIMATE NORMAL (NORMAL)
[2021-06-18 08:46] LABS: TEAR DROP CELLS 1+
[2021-06-18 08:48] LABS: POIKILOCYTOSIS 1+
[2021-06-18] MEDS: NITROGLYCERIN 0.4 MG/HR PATCH TD SCH (09:00)
[2021-06-18] MEDS ORDERED: SODIUM CHLORIDE 0.9% INJ 10 ML SYR IV SCH (09:00)
[2021-06-18 16:17] LABS: HEMATOCRIT 27.9 % (42.0-52.0); HEMOGLOBIN 8.2 g/dl (13.5-17.5); MEAN CORPUSCULAR HEMOGLOBIN 27.6 pg (27.0-33.0); MEAN CORPUSCULAR HGB CONC 29.4 g/dl (32.0-36.5); MEAN CORPUSCULAR VOLUME 93.9 fl (80.0-96.0); PLATELET COUNT, AUTOMATED 142 10^3/uL (150-450); RED BLOOD COUNT 2.97 10^6/uL (4.30-6.10); WHITE BLOOD COUNT 17.5 10^3/uL (4.0-10.0)
[2021-06-18 18:18] LABS: ANISOCYTOSIS 1+; ATYPICAL LYMPH 2 % (0-5); BASOPHILS 1 % (0-1); BLAST CELLS 1 % (0-0); EOSINOPHILS 4 % (0-3); LYMPHOCYTES 71 % (16-44); MONOCYTES 5 % (0-5); NEUTROPHILS 14 % (28-66); PLATELET ESTIMATE NORMAL (NORMAL); POIKILOCYTOSIS 1+
[2021-06-18 21:16] LABS: HEMATOCRIT 25.3 % (42.0-52.0); MEAN CORPUSCULAR HEMOGLOBIN 27.9 pg (27.0-33.0); MEAN CORPUSCULAR HGB CONC 31.6 g/dl (32.0-36.5); MEAN CORPUSCULAR VOLUME 88.2 fl (80.0-96.0); PLATELET COUNT, AUTOMATED 137 10^3/uL (150-450); RED BLOOD COUNT 2.87 10^6/uL (4.30-6.10); WHITE BLOOD COUNT 13.4 10^3/uL (4.0-10.0)
[2021-06-18] MEDS: TAMSULOSIN 0.4 MG CAP PO SCH (21:30)
[2021-06-18] MEDS: OLMESARTAN MEDOXOMIL 20 MG TAB (BENICAR) PO SCH (21:31)
[2021-06-18] MEDS: **NOTE PATIENT COMMENT** MISC XX SCH (21:46)
[2021-06-19] MEDS: PIPERACILLIN/TAZOBACTAM SOD 2.25 GM in D5W MINI-BAG PLUS 50 ML IV SCH ×2 (03:43→10:07)
[2021-06-19] MEDS: PYRIDOSTIGMINE 60MG TABLET PO SCH ×3 (05:08→22:10)
[2021-06-19 05:49] LABS: HEMOGLOBIN 7.7 g/dl (13.5-17.5); MEAN CORPUSCULAR HEMOGLOBIN 27.2 pg (27.0-33.0); MEAN CORPUSCULAR HGB CONC 30.8 g/dl (32.0-36.5); MEAN CORPUSCULAR VOLUME 88.3 fl (80.0-96.0); PLATELET COUNT, AUTOMATED 133 10^3/uL (150-450); RED BLOOD COUNT 2.83 10^6/uL (4.30-6.10); WHITE BLOOD COUNT 13.2 10^3/uL (4.0-10.0)
[2021-06-19 06:00] VITALS: BP 122/57
[2021-06-19 06:21] LABS: CALCIUM LEVEL 7.5 MG/DL (8.8-10.2); CREATININE FOR GFR 2.99 MG/DL (0.70-1.30); GLOMERULAR FILTRATION RATE 21.6 (>35); POTASSIUM SERUM 3.9 MEQ/L (3.5-5.1)
[2021-06-19] MEDS: BUDESONIDE 0.5 MG/2 ML INHALATION SUSPENSION NEB SCH ×2 (07:20→19:37)
[2021-06-19] MEDS: HumaLOG INSULIN (NovoLOG) PER UNIT SC SCH ×4 (07:30→21:00)
[2021-06-19] MEDS: D5W/0.45% SODIUM CHLORIDE 1,000 ML IV SCH ×2 (08:17→17:39)
[2021-06-19] MEDS: PANTOPRAZOLE 40MG VIAL (C9113 PER 1) IV SCH ×2 (08:17→22:08)
[2021-06-19] MEDS: SUCRALFATE SUSP 1GM/10ML UD PO SCH ×4 (08:17→22:06)
[2021-06-19] MEDS: RANOLAZINE 500 MG ER TAB PO SCH ×2 (08:18→22:09)
[2021-06-19] MEDS: FEXOFENADINE 60 MG TAB PO SCH (08:18)
[2021-06-19] MEDS: MYCOPHENOLATE MOFETIL 250 MG CAP (J7517) PO SCH ×2 (08:18→22:10)
[2021-06-19] MEDS: MECLIZINE 25 MG TABLET PO SCH ×2 (08:18→22:05)
[2021-06-19] MEDS: FERROUS SULFATE 325MG TAB PO SCH (08:18)
[2021-06-19] MEDS: NITROGLYCERIN 0.4 MG/HR PATCH TD SCH (08:20)
[2021-06-19] MEDS: METOPROLOL SUCC *XL* 25MG TAB (TopROL *XL*) PO SCH ×2 (08:20→22:07)
[2021-06-19] MEDS: DIGOXIN 0.125 MG TAB PO SCH (08:20)
[2021-06-19] MEDS: LEVEMIR (INSULIN DETEMIR) 1 UNITS/0.01ML SC SCH ×2 (08:23→21:00)
[2021-06-19 08:31] LABS: ATYPICAL LYMPH 9 % (0-5); BASOPHILS 2 % (0-1); BLAST CELLS 1 % (0-0); LYMPHOCYTES 53 % (16-44); MONOCYTES 6 % (0-5); NEUTROPHILS 26 % (28-66); PLATELET ESTIMATE DECREASED (NORMAL)
[2021-06-19 08:33] LABS: MICROCYTOSIS 1+; OVALOCYTES 2+; TEAR DROP CELLS 1+
[2021-06-19 09:53] LABS: VITAMIN B12 LEVEL > 2000 PG/ML (247-911)
[2021-06-19 09:54] LABS: FOLATE 15.6 NG/ML (>5.4)
[2021-06-19] MEDS: FIDAXOMICIN 200 MG TAB (DIFICID) PO SCH ×2 (12:32→22:06)
[2021-06-19 14:00] VITALS: BP 96/44
[2021-06-19] MEDS ORDERED: VANCOMYCIN ORAL SOL 250MG/5ML ORAL SYRINGE PO SCH (16:00)
[2021-06-19 19:27] LABS: HEMATOCRIT 31.4 % (42.0-52.0); HEMOGLOBIN 9.5 g/dl (13.5-17.5); MEAN CORPUSCULAR HEMOGLOBIN 27.1 pg (27.0-33.0); MEAN CORPUSCULAR HGB CONC 30.3 g/dl (32.0-36.5); MEAN CORPUSCULAR VOLUME 89.7 fl (80.0-96.0); PLATELET COUNT, AUTOMATED 154 10^3/uL (150-450); WHITE BLOOD COUNT 19.7 10^3/uL (4.0-10.0)
[2021-06-19 19:53] LABS: ANISOCYTOSIS 1+; ATYPICAL LYMPH 7 % (0-5); BLAST CELLS 4 % (0-0); EOSINOPHILS 1 % (0-3); LYMPHOCYTES 62 % (16-44); MONOCYTES 4 % (0-5); NEUTROPHILS 21 % (28-66); PLATELET ESTIMATE NORMAL (NORMAL)
[2021-06-19 22:00] VITALS: BP 121/51
[2021-06-19] MEDS: OLMESARTAN MEDOXOMIL 20 MG TAB (BENICAR) PO SCH (22:06)
[2021-06-19] MEDS: TAMSULOSIN 0.4 MG CAP PO SCH (22:06)
[2021-06-19] MEDS: **NOTE PATIENT COMMENT** MISC XX SCH (22:08)
[2021-06-19] MEDS: MORPHINE 4 MG/ML 1ML VIAL/SYRINGE (J2270) IV PRN (22:11)
[2021-06-19] MEDS: ONDANSETRON 4MG/2ML VIAL IV PRN (22:11)
[2021-06-20] MEDS: D5W/0.45% SODIUM CHLORIDE 1,000 ML IV SCH ×2 (02:17→12:16)
[2021-06-20 06:00] VITALS: BP 90/42
[2021-06-20] MEDS: BUDESONIDE 0.5 MG/2 ML INHALATION SUSPENSION NEB SCH ×2 (06:14→19:47)
[2021-06-20 06:36] LABS: HEMATOCRIT 26.9 % (42.0-52.0); HEMOGLOBIN 8.1 g/dl (13.5-17.5); MEAN CORPUSCULAR HEMOGLOBIN 26.8 pg (27.0-33.0); MEAN CORPUSCULAR HGB CONC 30.1 g/dl (32.0-36.5); MEAN CORPUSCULAR VOLUME 89.1 fl (80.0-96.0); PLATELET COUNT, AUTOMATED 151 10^3/uL (150-450); RED BLOOD COUNT 3.02 10^6/uL (4.30-6.10); WHITE BLOOD COUNT 16.9 10^3/uL (4.0-10.0)
[2021-06-20] MEDS: PYRIDOSTIGMINE 60MG TABLET PO SCH ×3 (06:41→23:01)
[2021-06-20 06:48] LABS: CALCIUM LEVEL 7.3 MG/DL (8.8-10.2); CREATININE FOR GFR 3.56 MG/DL (0.70-1.30); GLOMERULAR FILTRATION RATE 17.6 (>35); POTASSIUM SERUM 4.1 MEQ/L (3.5-5.1)
[2021-06-20] MEDS: SUCRALFATE SUSP 1GM/10ML UD PO SCH ×4 (08:36→23:00)
[2021-06-20] MEDS: HumaLOG INSULIN (NovoLOG) PER UNIT SC SCH ×4 (08:37→22:34)
[2021-06-20 08:46] VITALS: BP 110/54
[2021-06-20] MEDS: PANTOPRAZOLE 40MG VIAL (C9113 PER 1) IV SCH ×2 (09:12→23:01)
[2021-06-20] MEDS: MYCOPHENOLATE MOFETIL 250 MG CAP (J7517) PO SCH ×2 (09:12→23:00)
[2021-06-20] MEDS: FEXOFENADINE 60 MG TAB PO SCH (09:12)
[2021-06-20] MEDS: FIDAXOMICIN 200 MG TAB (DIFICID) PO SCH ×2 (09:12→23:01)
[2021-06-20] MEDS: RANOLAZINE 500 MG ER TAB PO SCH ×2 (09:13→23:01)
[2021-06-20] MEDS: MECLIZINE 25 MG TABLET PO SCH ×2 (09:13→23:00)
[2021-06-20] MEDS: DIGOXIN 0.125 MG TAB PO SCH (09:14)
[2021-06-20] MEDS: METOPROLOL SUCC *XL* 25MG TAB (TopROL *XL*) PO SCH (09:14)
[2021-06-20] MEDS: FERROUS SULFATE 325MG TAB PO SCH ×2 (09:15→11:34)
[2021-06-20] MEDS: NITROGLYCERIN 0.4 MG/HR PATCH TD SCH (09:16)
[2021-06-20] MEDS: LEVEMIR (INSULIN DETEMIR) 1 UNITS/0.01ML SC SCH ×2 (11:35→22:50)
[2021-06-20 14:00] VITALS: BP 107/49
[2021-06-20 22:00] VITALS: BP 104/50
[2021-06-20] MEDS: TAMSULOSIN 0.4 MG CAP PO SCH (22:33)
[2021-06-20] MEDS: METOPROLOL TART 25 MG TABLET PO SCH (22:33)
[2021-06-20] MEDS: D5W/0.9% SODIUM CHLORIDE 1,000 ML IV SCH (23:00)
[2021-06-20] MEDS: ONDANSETRON 4MG/2ML VIAL IV PRN (23:01)
[2021-06-20] MEDS: **NOTE PATIENT COMMENT** MISC XX SCH (23:01)
[2021-06-20] MEDS: MORPHINE 4 MG/ML 1ML VIAL/SYRINGE (J2270) IV PRN (23:02)
[2021-06-21] VITALS (9 sets, daily range): BP systolic 100–139; BP diastolic 45–62
[2021-06-21 06:17] LABS: HEMATOCRIT 25.3 % (42.0-52.0); HEMOGLOBIN 7.7 g/dl (13.5-17.5); MEAN CORPUSCULAR HEMOGLOBIN 27.2 pg (27.0-33.0); MEAN CORPUSCULAR HGB CONC 30.4 g/dl (32.0-36.5); MEAN CORPUSCULAR VOLUME 89.4 fl (80.0-96.0); PLATELET COUNT, AUTOMATED 147 10^3/uL (150-450); RED BLOOD COUNT 2.83 10^6/uL (4.30-6.10); WHITE BLOOD COUNT 19.5 10^3/uL (4.0-10.0)
[2021-06-21 06:32] LABS: CALCIUM LEVEL 7.4 MG/DL (8.8-10.2); CREATININE FOR GFR 4.7 MG/DL (0.70-1.30); GLOMERULAR FILTRATION RATE 12.8 (>35); POTASSIUM SERUM 4.2 MEQ/L (3.5-5.1)
[2021-06-21] MEDS: PYRIDOSTIGMINE 60MG TABLET PO SCH ×3 (06:57→23:28)
[2021-06-21] MEDS: BUDESONIDE 0.5 MG/2 ML INHALATION SUSPENSION NEB SCH ×2 (07:16→17:39)
[2021-06-21] MEDS: SUCRALFATE SUSP 1GM/10ML UD PO SCH ×5 (07:30→23:30)
[2021-06-21] MEDS: HumaLOG INSULIN (NovoLOG) PER UNIT SC SCH ×4 (07:30→22:31)
[2021-06-21] MEDS ORDERED: NS 500 ML IV ONE (08:15)
[2021-06-21] MEDS: LEVEMIR (INSULIN DETEMIR) 1 UNITS/0.01ML SC SCH (08:15)
[2021-06-21] MEDS: NITROGLYCERIN 0.4 MG/HR PATCH TD SCH (08:16)
[2021-06-21] MEDS: METOPROLOL TART 25 MG TABLET PO SCH (08:17)
[2021-06-21] MEDS: D5W/0.9% SODIUM CHLORIDE 1,000 ML IV SCH (09:33)
[2021-06-21] MEDS: PANTOPRAZOLE 40MG VIAL (C9113 PER 1) IV SCH ×2 (09:49→23:28)
[2021-06-21] MEDS: FIDAXOMICIN 200 MG TAB (DIFICID) PO SCH ×2 (09:50→23:27)
[2021-06-21] MEDS: RANOLAZINE 500 MG ER TAB PO SCH ×2 (09:50→23:28)
[2021-06-21] MEDS: MECLIZINE 25 MG TABLET PO SCH ×2 (09:50→23:27)
[2021-06-21] MEDS: DIGOXIN 0.125 MG TAB PO SCH (09:50)
[2021-06-21] MEDS: FEXOFENADINE 60 MG TAB PO SCH (09:50)
[2021-06-21] MEDS: FERROUS SULFATE 325MG TAB PO SCH (09:50)
[2021-06-21] MEDS: MYCOPHENOLATE MOFETIL 250 MG CAP (J7517) PO SCH ×3 (09:51→23:30)
[2021-06-21] MEDS: MIDODRINE 2.5 MG TAB PO SCH ×2 (12:31→16:32)
[2021-06-21] MEDS: SODIUM BICARBONATE 100 MEQ in D5W 1,000 ML IV SCH ×2 (15:07→23:28)
[2021-06-21] MEDS: **NOTE PATIENT COMMENT** MISC XX SCH (22:31)
[2021-06-21] MEDS: METOPROLOL TART 12.5 MG PER 1/2 TAB PO SCH (23:28)
[2021-06-21] MEDS: ONDANSETRON 4MG/2ML VIAL IV PRN (23:28)
[2021-06-21] MEDS: MORPHINE 4 MG/ML 1ML VIAL/SYRINGE (J2270) IV PRN (23:29)
[2021-06-22] VITALS (9 sets, daily range): BP systolic 102–121; BP diastolic 42–60
[2021-06-22] MEDS: PYRIDOSTIGMINE 60MG TABLET PO SCH ×2 (06:00→14:00)
[2021-06-22 06:29] LABS: HEMATOCRIT 25.1 % (42.0-52.0); HEMOGLOBIN 7.8 g/dl (13.5-17.5); MEAN CORPUSCULAR HEMOGLOBIN 27.4 pg (27.0-33.0); MEAN CORPUSCULAR HGB CONC 31.1 g/dl (32.0-36.5); MEAN CORPUSCULAR VOLUME 88.1 fl (80.0-96.0); PLATELET COUNT, AUTOMATED 148 10^3/uL (150-450); RED BLOOD COUNT 2.85 10^6/uL (4.30-6.10); WHITE BLOOD COUNT 16.7 10^3/uL (4.0-10.0)
[2021-06-22 06:53] LABS: ALBUMIN 2.1 GM/DL (3.2-5.2); BILIRUBIN,TOTAL 0.4 MG/DL (0.2-1.0); CALCIUM LEVEL 7.2 MG/DL (8.8-10.2); CREATININE FOR GFR 5.5 MG/DL (0.70-1.30); GLOMERULAR FILTRATION RATE 10.7 (>35); POTASSIUM SERUM 4.2 MEQ/L (3.5-5.1); TOTAL PROTEIN 4.4 GM/DL (6.4-8.2)
[2021-06-22 06:59] LABS: ANISOCYTOSIS 2+; ATYPICAL LYMPH 13 % (0-5); BLAST CELLS 2 % (0-0); EOSINOPHILS 1 % (0-3); LYMPHOCYTES 40 % (16-44); METAMYELOCYTES 2 % (0-0); MONOCYTES 15 % (0-5); MYELOCYTES 3 % (0-0); NEUTROPHILS 24 % (28-66); PLATELET ESTIMATE NORMAL (NORMAL); POIKILOCYTOSIS 1+; POLYCHROMASIA 1+; TOXIC VACUOLATION 1+
[2021-06-22 07:07] LABS: DIGOXIN LEVEL 1.4 NG/ML (0.5-2.0)
[2021-06-22] MEDS: BUDESONIDE 0.5 MG/2 ML INHALATION SUSPENSION NEB SCH ×2 (07:10→20:00)
[2021-06-22] MEDS: MIDODRINE 2.5 MG TAB PO SCH ×3 (08:00→16:00)
[2021-06-22] MEDS: MECLIZINE 25 MG TABLET PO SCH (09:00)
[2021-06-22] MEDS: RANOLAZINE 500 MG ER TAB PO SCH ×2 (09:00→20:28)
[2021-06-22] MEDS: NITROGLYCERIN 0.4 MG/HR PATCH TD SCH (09:00)
[2021-06-22] MEDS: MYCOPHENOLATE MOFETIL 250 MG CAP (J7517) PO SCH ×2 (09:00→20:28)
[2021-06-22] MEDS: DIGOXIN 0.125 MG TAB PO SCH (09:00)
[2021-06-22] MEDS: METOPROLOL TART 12.5 MG PER 1/2 TAB PO SCH (09:00)
[2021-06-22] MEDS: FEXOFENADINE 60 MG TAB PO SCH (09:00)
[2021-06-22] MEDS: FERROUS SULFATE 325MG TAB PO SCH (09:00)
[2021-06-22] MEDS: FIDAXOMICIN 200 MG TAB (DIFICID) PO SCH ×2 (09:00→20:33)
[2021-06-22] MEDS: PANTOPRAZOLE 40MG VIAL (C9113 PER 1) IV SCH ×2 (09:00→20:28)
[2021-06-22] MEDS: SODIUM BICARBONATE 100 MEQ in D5W 1,000 ML IV SCH ×2 (09:15→16:02)
[2021-06-22] MEDS: SUCRALFATE SUSP 1GM/10ML UD PO SCH ×4 (09:16→20:28)
[2021-06-22] MEDS: HumaLOG INSULIN (NovoLOG) PER UNIT SC SCH ×4 (09:16→20:10)
[2021-06-22] MEDS: cefTRIAXone SOD 1 GM in D5W MINI-BAG PLUS 50 ML IV SCH (16:03)
[2021-06-22] MEDS: DOXYCYCLINE HYCLATE 100 MG in D5W MINI-BAG PLUS 100 ML IV SCH (17:31)
[2021-06-22] MEDS: methylPREDNISolone 125MG 2ML VIAL IV SCH (17:32)
[2021-06-22 17:40] LABS: MAGNESIUM LEVEL 1.5 MG/DL (1.7-2.2)
[2021-06-22] MEDS: PYRIDOSTIGMINE INJ 10 MG/2 ML AMP IV SCH ×2 (18:39→21:07)
[2021-06-22] MEDS: **NOTE PATIENT COMMENT** MISC XX SCH (20:30)
[2021-06-23] VITALS (11 sets, daily range): BP systolic 100–146; BP diastolic 50–66; O2SAT 95–100
[2021-06-23] MEDS: SODIUM BICARBONATE 100 MEQ in D5W 1,000 ML IV SCH ×3 (03:15→18:20)
[2021-06-23] MEDS: DOXYCYCLINE HYCLATE 100 MG in D5W MINI-BAG PLUS 100 ML IV SCH ×2 (04:42→17:32)
[2021-06-23 05:05] LABS: HEMATOCRIT 22.5 % (42.0-52.0); MEAN CORPUSCULAR HEMOGLOBIN 26.8 pg (27.0-33.0); MEAN CORPUSCULAR HGB CONC 31.1 g/dl (32.0-36.5); MEAN CORPUSCULAR VOLUME 86.2 fl (80.0-96.0); PLATELET COUNT, AUTOMATED 125 10^3/uL (150-450); RED BLOOD COUNT 2.61 10^6/uL (4.30-6.10); WHITE BLOOD COUNT 9.8 10^3/uL (4.0-10.0)
[2021-06-23] MEDS: PYRIDOSTIGMINE INJ 10 MG/2 ML AMP IV SCH ×3 (05:50→22:05)
[2021-06-23 05:52] LABS: CALCIUM LEVEL 6.9 MG/DL (8.8-10.2); CREATININE FOR GFR 5.82 MG/DL (0.70-1.30); DIGOXIN LEVEL 1.3 NG/ML (0.5-2.0); POTASSIUM SERUM 4.3 MEQ/L (3.5-5.1)
[2021-06-23 06:01] LABS: ANISOCYTOSIS 1+; BASOPHILS 1 % (0-1); BLAST CELLS 1 % (0-0); HYPOCHROMASIA 1+; LYMPHOCYTES 66 % (16-44); MONOCYTES 8 % (0-5); MYELOCYTES 1 % (0-0); NEUTROPHILS 23 % (28-66); PLATELET ESTIMATE NORMAL (NORMAL)
[2021-06-23 06:02] LABS: OVALOCYTES 1+; POIKILOCYTOSIS 1+; POLYCHROMASIA 1+
[2021-06-23] MEDS: BUDESONIDE 0.5 MG/2 ML INHALATION SUSPENSION NEB SCH ×2 (07:46→19:55)
[2021-06-23] MEDS: DIGOXIN 0.125 MG TAB PO SCH (09:00)
[2021-06-23] MEDS ORDERED: predniSONE 20 MG TAB PO SCH (09:00)
[2021-06-23] MEDS: NITROGLYCERIN 0.4 MG/HR PATCH TD SCH (09:00)
[2021-06-23] MEDS: MAG SULF 1GM/100ML (MAG RUN) 1 GM in IV 1 EA IV SCH ×2 (09:33→10:48)
[2021-06-23] MEDS: methylPREDNISolone 125MG 2ML VIAL IV SCH (09:34)
[2021-06-23] MEDS: HumaLOG INSULIN (NovoLOG) PER UNIT SC SCH ×4 (09:35→21:00)
[2021-06-23] MEDS: SUCRALFATE SUSP 1GM/10ML UD PO SCH ×4 (09:36→22:05)
[2021-06-23] MEDS: MYCOPHENOLATE MOFETIL 250 MG CAP (J7517) PO SCH ×2 (09:36→22:06)
[2021-06-23] MEDS: PANTOPRAZOLE 40MG VIAL (C9113 PER 1) IV SCH ×2 (09:36→22:05)
[2021-06-23] MEDS: RANOLAZINE 500 MG ER TAB PO SCH ×2 (09:37→22:06)
[2021-06-23] MEDS: FIDAXOMICIN 200 MG TAB (DIFICID) PO SCH ×2 (09:37→22:06)
[2021-06-23] MEDS: FERROUS SULFATE 325MG TAB PO SCH (09:37)
[2021-06-23] MEDS: MIDODRINE 2.5 MG TAB PO SCH ×3 (09:38→15:43)
[2021-06-23] MEDS: cefTRIAXone SOD 1 GM in D5W MINI-BAG PLUS 50 ML IV SCH (15:43)
[2021-06-23] MEDS: **NOTE PATIENT COMMENT** MISC XX SCH (21:00)
[2021-06-23] MEDS: IMMUNE GLOBULIN 10% 80 GM in IV 1 EA IV SCH (21:44)
[2021-06-24] VITALS (14 sets, daily range): BP systolic 110–129; BP diastolic 51–61; O2SAT 93–97
[2021-06-24] MEDS: DOXYCYCLINE HYCLATE 100 MG in D5W MINI-BAG PLUS 100 ML IV SCH ×2 (05:04→18:12)
[2021-06-24] MEDS: PYRIDOSTIGMINE INJ 10 MG/2 ML AMP IV SCH ×2 (05:06→14:46)
[2021-06-24] MEDS: SODIUM BICARBONATE 100 MEQ in D5W 1,000 ML IV SCH (05:06)
[2021-06-24] MEDS: SUCRALFATE SUSP 1GM/10ML UD PO SCH ×5 (07:30→21:00)
[2021-06-24] MEDS: HumaLOG INSULIN (NovoLOG) PER UNIT SC SCH ×4 (07:30→21:00)
[2021-06-24] MEDS: BUDESONIDE 0.5 MG/2 ML INHALATION SUSPENSION NEB SCH ×2 (07:37→20:55)
[2021-06-24] MEDS: MIDODRINE 2.5 MG TAB PO SCH ×3 (08:00→17:28)
[2021-06-24 08:23] LABS: HEMATOCRIT 22.4 % (42.0-52.0); HEMOGLOBIN 7.1 g/dl (13.5-17.5); MEAN CORPUSCULAR HEMOGLOBIN 27.1 pg (27.0-33.0); MEAN CORPUSCULAR HGB CONC 31.7 g/dl (32.0-36.5); MEAN CORPUSCULAR VOLUME 85.5 fl (80.0-96.0); PLATELET COUNT, AUTOMATED 153 10^3/uL (150-450); RED BLOOD COUNT 2.62 10^6/uL (4.30-6.10); WHITE BLOOD COUNT 15.8 10^3/uL (4.0-10.0)
[2021-06-24 09:00] LABS: ATYPICAL LYMPH 5 % (0-5); LYMPHOCYTES 67 % (16-44); MONOCYTES 2 % (0-5); NEUTROPHILS 24 % (28-66)
[2021-06-24 09:02] LABS: ANISOCYTOSIS 1+; OVALOCYTES 1+; PLATELET ESTIMATE NORMAL (NORMAL)
[2021-06-24 09:05] LABS: CALCIUM LEVEL 7.1 MG/DL (8.8-10.2); CREATININE FOR GFR 5.84 MG/DL (0.70-1.30); DIGOXIN LEVEL 0.9 NG/ML (0.5-2.0); MAGNESIUM LEVEL 1.8 MG/DL (1.8-2.4); PHOSPHORUS LEVEL 4.8 MG/DL (2.5-4.9); POTASSIUM SERUM 4.2 MEQ/L (3.5-5.1)
[2021-06-24 09:08] LABS: SMUDGE CELLS 1+
[2021-06-24 09:11] LABS: POIKILOCYTOSIS 1+; TEAR DROP CELLS 1+
[2021-06-24] MEDS: PANTOPRAZOLE 40MG VIAL (C9113 PER 1) IV SCH ×2 (09:28→21:47)
[2021-06-24] MEDS: methylPREDNISolone 125MG 2ML VIAL IV SCH (09:29)
[2021-06-24] MEDS: FIDAXOMICIN 200 MG TAB (DIFICID) PO SCH ×2 (09:30→21:48)
[2021-06-24] MEDS: RANOLAZINE 500 MG ER TAB PO SCH ×2 (09:30→21:47)
[2021-06-24] MEDS: MYCOPHENOLATE MOFETIL 250 MG CAP (J7517) PO SCH ×2 (09:30→21:47)
[2021-06-24] MEDS: NITROGLYCERIN 0.4 MG/HR PATCH TD SCH (09:30)
[2021-06-24] MEDS: FERROUS SULFATE 325MG TAB PO SCH (09:31)
[2021-06-24] MEDS: DIGOXIN 0.125 MG TAB PO SCH (09:31)
[2021-06-24] MEDS: FUROSEMIDE 40MG/4ML VIAL (J1940) IV SCH ×2 (11:22→18:45)
[2021-06-24] MEDS ORDERED: SODIUM BICARBONATE 150 MEQ in D5W 1,000 ML IV SCH (12:00)
[2021-06-24] MEDS: cefTRIAXone SOD 1 GM in D5W MINI-BAG PLUS 50 ML IV SCH (16:50)
[2021-06-24] MEDS: IPRATROPIUM 0.5MG/ALBUTEROL 2.5MG INH SOL UD 3ML (DUONEB) NEB PRN (19:27)
[2021-06-24] MEDS: **NOTE PATIENT COMMENT** MISC XX SCH (21:00)
[2021-06-24] MEDS: PYRIDOSTIGMINE 60MG TABLET PO SCH (21:47)
[2021-06-24] MEDS: IMMUNE GLOBULIN 10% 80 GM in IV 1 EA IV SCH (21:51)
[2021-06-25] VITALS (9 sets, daily range): BP systolic 113–137; BP diastolic 56–63
[2021-06-25] MEDS: FUROSEMIDE 40MG/4ML VIAL (J1940) IV SCH ×2 (02:13→18:37)
[2021-06-25] MEDS: DOXYCYCLINE HYCLATE 100 MG in D5W MINI-BAG PLUS 100 ML IV SCH ×2 (04:16→17:11)
[2021-06-25 05:43] LABS: HEMATOCRIT 21.1 % (42.0-52.0); MEAN CORPUSCULAR HEMOGLOBIN 27.6 pg (27.0-33.0); MEAN CORPUSCULAR HGB CONC 32.2 g/dl (32.0-36.5); MEAN CORPUSCULAR VOLUME 85.8 fl (80.0-96.0); PLATELET COUNT, AUTOMATED 109 10^3/uL (150-450); RED BLOOD COUNT 2.46 10^6/uL (4.30-6.10); WHITE BLOOD COUNT 13.2 10^3/uL (4.0-10.0)
[2021-06-25 05:47] LABS: HEMOGLOBIN 6.8 g/dl (13.5-17.5)
[2021-06-25 06:05] LABS: CALCIUM LEVEL 6.8 MG/DL (8.8-10.2); CREATININE FOR GFR 5.7 MG/DL (0.70-1.30); GLOMERULAR FILTRATION RATE 10.2 (>35); MAGNESIUM LEVEL 1.6 MG/DL (1.8-2.4)
[2021-06-25] MEDS: BUDESONIDE 0.5 MG/2 ML INHALATION SUSPENSION NEB SCH ×2 (07:14→20:45)
[2021-06-25] MEDS: SUCRALFATE SUSP 1GM/10ML UD PO SCH ×4 (07:30→22:09)
[2021-06-25] MEDS: HumaLOG INSULIN (NovoLOG) PER UNIT SC SCH ×4 (07:30→20:15)
[2021-06-25] MEDS: MIDODRINE 2.5 MG TAB PO SCH ×3 (08:00→17:18)
[2021-06-25] MEDS: PANTOPRAZOLE 40MG VIAL (C9113 PER 1) IV SCH ×2 (09:26→22:09)
[2021-06-25] MEDS: methylPREDNISolone 125MG 2ML VIAL IV SCH (09:26)
[2021-06-25] MEDS: RANOLAZINE 500 MG ER TAB PO SCH ×2 (09:27→22:11)
[2021-06-25] MEDS: MYCOPHENOLATE MOFETIL 250 MG CAP (J7517) PO SCH ×2 (09:27→22:10)
[2021-06-25] MEDS: FIDAXOMICIN 200 MG TAB (DIFICID) PO SCH ×2 (09:27→22:11)
[2021-06-25] MEDS: NITROGLYCERIN 0.4 MG/HR PATCH TD SCH (09:27)
[2021-06-25] MEDS: PYRIDOSTIGMINE 60MG TABLET PO SCH ×2 (09:27→22:10)
[2021-06-25] MEDS: DIGOXIN 0.125 MG TAB PO SCH (09:28)
[2021-06-25] MEDS ORDERED: FUROSEMIDE 100MG/10ML VIAL (J1940) IV ONE (11:50)
[2021-06-25] MEDS: SODIUM BICARBONATE 325 MG TAB PO SCH ×3 (12:40→22:11)
[2021-06-25 13:16] LABS: HEMATOCRIT 25.8 % (42.0-52.0); HEMOGLOBIN 8.4 g/dl (13.5-17.5)
[2021-06-25] MEDS: ONDANSETRON 4MG/2ML VIAL IV PRN (13:31)
[2021-06-25] MEDS: cefTRIAXone SOD 1 GM in D5W MINI-BAG PLUS 50 ML IV SCH (17:10)
[2021-06-25] MEDS: **NOTE PATIENT COMMENT** MISC XX SCH (21:00)
[2021-06-26] VITALS (7 sets, daily range): BP systolic 128–149; BP diastolic 60–67
[2021-06-26] MEDS: FUROSEMIDE 40MG/4ML VIAL (J1940) IV SCH ×3 (03:09→18:06)
[2021-06-26] MEDS: DOXYCYCLINE HYCLATE 100 MG in D5W MINI-BAG PLUS 100 ML IV SCH (04:21)
[2021-06-26 05:39] LABS: HEMATOCRIT 24.8 % (42.0-52.0); HEMOGLOBIN 8.2 g/dl (13.5-17.5); MEAN CORPUSCULAR HEMOGLOBIN 27.9 pg (27.0-33.0); MEAN CORPUSCULAR HGB CONC 33.1 g/dl (32.0-36.5); MEAN CORPUSCULAR VOLUME 84.4 fl (80.0-96.0); PLATELET COUNT, AUTOMATED 102 10^3/uL (150-450); RED BLOOD COUNT 2.94 10^6/uL (4.30-6.10); WHITE BLOOD COUNT 19.2 10^3/uL (4.0-10.0)
[2021-06-26 06:08] LABS: CALCIUM LEVEL 6.9 MG/DL (8.8-10.2); CREATININE FOR GFR 5.49 MG/DL (0.70-1.30); GLOMERULAR FILTRATION RATE 10.7 (>35); MAGNESIUM LEVEL 1.6 MG/DL (1.8-2.4)
[2021-06-26] MEDS: HumaLOG INSULIN (NovoLOG) PER UNIT SC SCH ×4 (07:30→21:00)
[2021-06-26] MEDS: MIDODRINE 2.5 MG TAB PO SCH ×3 (08:00→16:31)
[2021-06-26] MEDS: SUCRALFATE SUSP 1GM/10ML UD PO SCH ×4 (08:10→20:59)
[2021-06-26] MEDS: PANTOPRAZOLE 40MG VIAL (C9113 PER 1) IV SCH (08:10)
[2021-06-26] MEDS: methylPREDNISolone 125MG 2ML VIAL IV SCH (08:10)
[2021-06-26] MEDS: SODIUM BICARBONATE 325 MG TAB PO SCH ×4 (08:11→20:59)
[2021-06-26] MEDS: NITROGLYCERIN 0.4 MG/HR PATCH TD SCH (08:11)
[2021-06-26] MEDS: FIDAXOMICIN 200 MG TAB (DIFICID) PO SCH ×2 (08:12→20:59)
[2021-06-26] MEDS: MYCOPHENOLATE MOFETIL 250 MG CAP (J7517) PO SCH ×2 (08:12→20:59)
[2021-06-26] MEDS: RANOLAZINE 500 MG ER TAB PO SCH ×2 (08:12→20:59)
[2021-06-26] MEDS: PYRIDOSTIGMINE 60MG TABLET PO SCH ×2 (08:12→20:58)
[2021-06-26] MEDS: DIGOXIN 0.125 MG TAB PO SCH (08:15)
[2021-06-26] MEDS: CALCIUM ACETATE 667MG GELCAP PO SCH ×3 (08:48→17:46)
[2021-06-26] MEDS: (RENVELA) SEVELAMER **CARBONate** 800 MG TAB PO SCH ×3 (10:34→17:46)
[2021-06-26] MEDS: BUDESONIDE 0.5 MG/2 ML INHALATION SUSPENSION NEB SCH ×2 (11:33→20:00)
[2021-06-26] MEDS: ONDANSETRON 4MG/2ML VIAL IV PRN ×2 (12:04→16:28)
[2021-06-26] MEDS: DOXYCYCLINE HYCLATE 100MG TABLET PO SCH (20:59)
[2021-06-26] MEDS: **NOTE PATIENT COMMENT** MISC XX SCH (21:00)
[2021-06-27] VITALS (7 sets, daily range): BP systolic 124–154; BP diastolic 60–72
[2021-06-27] MEDS: FUROSEMIDE 40MG/4ML VIAL (J1940) IV SCH ×3 (02:54→18:11)
[2021-06-27 05:35] LABS: HEMATOCRIT 27.7 % (42.0-52.0); HEMOGLOBIN 9.1 g/dl (13.5-17.5); MEAN CORPUSCULAR HEMOGLOBIN 27.4 pg (27.0-33.0); MEAN CORPUSCULAR HGB CONC 32.9 g/dl (32.0-36.5); MEAN CORPUSCULAR VOLUME 83.4 fl (80.0-96.0); RED BLOOD COUNT 3.32 10^6/uL (4.30-6.10); WHITE BLOOD COUNT 28.9 10^3/uL (4.0-10.0)
[2021-06-27 05:51] LABS: CALCIUM LEVEL 7.6 MG/DL (8.8-10.2); CREATININE FOR GFR 5.64 MG/DL (0.70-1.30); GLOMERULAR FILTRATION RATE 10.4 (>35); MAGNESIUM LEVEL 1.7 MG/DL (1.8-2.4)
[2021-06-27 05:55] LABS: PLATELET COUNT, AUTOMATED 96 10^3/uL (150-450)
[2021-06-27] MEDS: HumaLOG INSULIN (NovoLOG) PER UNIT SC SCH ×4 (07:30→20:27)
[2021-06-27] MEDS: BUDESONIDE 0.5 MG/2 ML INHALATION SUSPENSION NEB SCH ×2 (07:47→20:00)
[2021-06-27] MEDS: IPRATROPIUM 0.5MG/ALBUTEROL 2.5MG INH SOL UD 3ML (DUONEB) NEB PRN (07:47)
[2021-06-27] MEDS: MIDODRINE 2.5 MG TAB PO SCH ×3 (08:00→16:57)
[2021-06-27] MEDS: NITROGLYCERIN 0.4 MG/HR PATCH TD SCH (08:58)
[2021-06-27] MEDS: methylPREDNISolone 125MG 2ML VIAL IV SCH (08:58)
[2021-06-27] MEDS: SUCRALFATE SUSP 1GM/10ML UD PO SCH ×4 (08:59→20:21)
[2021-06-27] MEDS: SODIUM BICARBONATE 325 MG TAB PO SCH ×2 (08:59→12:12)
[2021-06-27] MEDS: FIDAXOMICIN 200 MG TAB (DIFICID) PO SCH ×2 (09:00→20:21)
[2021-06-27] MEDS ORDERED: PANTOPRAZOLE 40MG VIAL (C9113 PER 1) IV SCH (09:00)
[2021-06-27] MEDS: MYCOPHENOLATE MOFETIL 250 MG CAP (J7517) PO SCH ×2 (09:00→20:21)
[2021-06-27] MEDS: PYRIDOSTIGMINE 60MG TABLET PO SCH ×2 (09:00→20:21)
[2021-06-27] MEDS: CEFDINIR 300 MG CAP (OMNICEF) PO SCH (09:01)
[2021-06-27] MEDS: RANOLAZINE 500 MG ER TAB PO SCH ×2 (09:01→20:21)
[2021-06-27] MEDS: (RENVELA) SEVELAMER **CARBONate** 800 MG TAB PO SCH ×3 (09:01→17:01)
[2021-06-27] MEDS: DIGOXIN 0.125 MG TAB PO SCH (09:01)
[2021-06-27] MEDS: CALCIUM ACETATE 667MG GELCAP PO SCH ×3 (09:01→17:01)
[2021-06-27] MEDS: DOXYCYCLINE HYCLATE 100MG TABLET PO SCH ×2 (09:01→20:21)
[2021-06-27] MEDS: ONDANSETRON 4MG/2ML VIAL IV PRN (13:13)
[2021-06-27] MEDS ORDERED: HYOSCYAMINE SULFATE 0.125 MG SUBL TABLET PO ONE (15:45)
[2021-06-27 16:11] LABS: BODY FLUID CULTURE Not indicated. (.); LEGIONELLA ANTIGEN URINE Negative (Negative); ORGANISM ID Not indicated. (.); SPECIMEN SOURCE Urine (.); URINE STREP PNEUMONIAE ANTIGEN Negative (Negative)
[2021-06-27] MEDS: **NOTE PATIENT COMMENT** MISC XX SCH (20:22)
[2021-06-28] VITALS: BP 127/58
[2021-06-28] MEDS: FUROSEMIDE 40MG/4ML VIAL (J1940) IV SCH (02:56)
[2021-06-28 04:00] VITALS: BP 160/72
[2021-06-28 06:06] LABS: HEMATOCRIT 25.7 % (42.0-52.0); HEMOGLOBIN 8.2 g/dl (13.5-17.5); MEAN CORPUSCULAR HEMOGLOBIN 27.2 pg (27.0-33.0); MEAN CORPUSCULAR HGB CONC 31.9 g/dl (32.0-36.5); MEAN CORPUSCULAR VOLUME 85.1 fl (80.0-96.0); RED BLOOD COUNT 3.02 10^6/uL (4.30-6.10)
[2021-06-28 06:10] LABS: PLATELET COUNT, AUTOMATED 81 10^3/uL (150-450); WHITE BLOOD COUNT 32.3 10^3/uL (4.0-10.0)
[2021-06-28 06:27] LABS: CALCIUM LEVEL 7.7 MG/DL (8.8-10.2); CREATININE FOR GFR 5.55 MG/DL (0.70-1.30); GLOMERULAR FILTRATION RATE 10.6 (>35); MAGNESIUM LEVEL 1.7 MG/DL (1.8-2.4); PHOSPHORUS LEVEL 7.2 MG/DL (2.5-4.9); POTASSIUM SERUM 4.2 MEQ/L (3.5-5.1)
[2021-06-28 06:36] LABS: ANISOCYTOSIS 1+; ATYPICAL LYMPH 2 % (0-5); LYMPHOCYTES 75 % (16-44); MONOCYTES 12 % (0-5); NEUTROPHILS 11 % (28-66); PLATELET ESTIMATE DECREASED (NORMAL)
[2021-06-28] MEDS: HumaLOG INSULIN (NovoLOG) PER UNIT SC SCH ×4 (07:30→20:49)
[2021-06-28 08:00] VITALS: BP 112/54
[2021-06-28] MEDS: (RENVELA) SEVELAMER **CARBONate** 800 MG TAB PO SCH ×4 (08:00→18:48)
[2021-06-28] MEDS: CALCIUM ACETATE 667MG GELCAP PO SCH ×3 (08:00→18:48)
[2021-06-28] MEDS: MIDODRINE 2.5 MG TAB PO SCH ×4 (08:00→16:00)
[2021-06-28 08:56] LABS: HEMATOCRIT 24.3 % (42.0-52.0); HEMOGLOBIN 7.9 g/dl (13.5-17.5); MEAN CORPUSCULAR HEMOGLOBIN 27.3 pg (27.0-33.0); MEAN CORPUSCULAR HGB CONC 32.5 g/dl (32.0-36.5); MEAN CORPUSCULAR VOLUME 84.1 fl (80.0-96.0); PLATELET COUNT, AUTOMATED 76 10^3/uL (150-450); RED BLOOD COUNT 2.89 10^6/uL (4.30-6.10); WHITE BLOOD COUNT 28.5 10^3/uL (4.0-10.0)
[2021-06-28] MEDS: FIDAXOMICIN 200 MG TAB (DIFICID) PO SCH ×2 (08:58→20:39)
[2021-06-28] MEDS: DOXYCYCLINE HYCLATE 100MG TABLET PO SCH ×2 (08:58→20:39)
[2021-06-28] MEDS: MYCOPHENOLATE MOFETIL 250 MG CAP (J7517) PO SCH ×2 (08:59→20:39)
[2021-06-28] MEDS: RANOLAZINE 500 MG ER TAB PO SCH ×2 (09:00→20:39)
[2021-06-28] MEDS: PYRIDOSTIGMINE 60MG TABLET PO SCH ×2 (09:00→20:39)
[2021-06-28] MEDS: CEFDINIR 300 MG CAP (OMNICEF) PO SCH (09:00)
[2021-06-28] MEDS: predniSONE 20 MG TAB PO SCH (09:00)
[2021-06-28] MEDS: DIGOXIN 0.125 MG TAB PO SCH (09:00)
[2021-06-28] MEDS: SUCRALFATE SUSP 1GM/10ML UD PO SCH ×4 (09:01→20:39)
[2021-06-28] MEDS: NITROGLYCERIN 0.4 MG/HR PATCH TD SCH (09:02)
[2021-06-28] MEDS: PANTOPRAZOLE 40MG VIAL (C9113 PER 1) IV SCH ×2 (09:13→20:40)
[2021-06-28 09:22] LABS: ATYPICAL LYMPH 15 % (0-5); MONOCYTES 9 % (0-5)
[2021-06-28 09:31] LABS: PLATELET ESTIMATE DECREASED (NORMAL)
[2021-06-28 09:32] LABS: LYMPHOCYTES 65 % (16-44)
[2021-06-28 09:34] LABS: OVALOCYTES 2+
[2021-06-28 09:35] LABS: MICROCYTOSIS 2+; SMUDGE CELLS 1+
[2021-06-28 09:36] LABS: NEUTROPHILS 11 % (28-66)
[2021-06-28] MEDS ORDERED: SODIUM CHLORIDE 0.9% 1000ML IV PRN (09:50)
[2021-06-28 10:53] LABS: HEPATITIS B CORE ANTIBODY IGM NEGATIVE (NEGATIVE); HEPATITIS B SURFACE ANTIBODY POSITIVE (POSITIVE); HEPATITIS B SURFACE ANTIGEN NEGATIVE (NEGATIVE); HEPATITIS C VIRUS ABY INDEX 0.1 INDEX (<0.8)
[2021-06-28 11:06] LABS: APPEARANCE, URINE CLEAR (CLEAR); BACTERIA, URINE AUTO 1+ (NEGATIVE); BILIRUBIN, URINE AUTO NEGATIVE (NEGATIVE); BLOOD, URINE BLOOD 1+ (NEGATIVE); COLOR, URINE YELLOW (YELLOW); GLUCOSE, URINE (UA) AUTO NEGATIVE (NEGATIVE); KETONE, URINE AUTO NEGATIVE (NEGATIVE); LEUKOCYTE ESTERASE, URINE AUTO NEGATIVE (NEGATIVE); MUCUS, URINE SMALL (NEGATIVE); NITRITE, URINE AUTO NEGATIVE (NEGATIVE); PROTEIN, URINE AUTO NEGATIVE (NEGATIVE); RBC, URINE AUTO 5 /HPF (0-3); SPECIFIC GRAVITY URINE AUTO 1.008 (1.002-1.035); SQUAMOUS EPITHELIAL CELL UR AU 0 /HPF (0-6); UROBILINOGEN, URINE AUTO 0.2 mg/dL (0.0-2.0); WBC, URINE AUTO 2 /HPF (0-3)
[2021-06-28] MEDS: BUDESONIDE 0.5 MG/2 ML INHALATION SUSPENSION NEB SCH ×2 (11:10→19:34)
[2021-06-28] MEDS ORDERED: ALTEPLASE 2MG/2ML VIAL As Ordered ONE (12:11)
[2021-06-28] MEDS ORDERED: diphenhydrAMINE 50MG/ML VIAL (J1200) As Ordered ONE (12:31)
[2021-06-28] MEDS ORDERED: fentaNYL 100 MCG/2 ML INJECTION As Ordered ONE (12:31)
[2021-06-28] MEDS ORDERED: LIDOCAINE 1% MDV 20ML VIAL As Ordered ONE (12:32)
[2021-06-28] MEDS ORDERED: MIDAZOLAM INJ 2MG/2ML VIAL (J2250 PER 1MG) As Ordered ONE (12:32)
[2021-06-28] MEDS ORDERED: ceFAZolin 2 GM/D5W 50 ML IV BAG (J0690 PER 500MG) As Ordered ONE (14:01)
[2021-06-28 18:40] VITALS: BP 130/84
[2021-06-28 20:11] VITALS: BP 139/63
[2021-06-28] MEDS: **NOTE PATIENT COMMENT** MISC XX SCH (20:49)
[2021-06-29 00:14] VITALS: BP 128/68
[2021-06-29] MEDS: ONDANSETRON 4MG/2ML VIAL IV PRN (04:49)
[2021-06-29 04:55] VITALS: BP 120/62
[2021-06-29 06:14] LABS: HEMATOCRIT 26.5 % (42.0-52.0); HEMOGLOBIN 8.6 g/dl (13.5-17.5); MEAN CORPUSCULAR HEMOGLOBIN 27.6 pg (27.0-33.0); MEAN CORPUSCULAR HGB CONC 32.5 g/dl (32.0-36.5); MEAN CORPUSCULAR VOLUME 84.9 fl (80.0-96.0); RED BLOOD COUNT 3.12 10^6/uL (4.30-6.10)
[2021-06-29 06:19] LABS: PLATELET COUNT, AUTOMATED 51 10^3/uL (150-450)
[2021-06-29] MEDS ORDERED: SODIUM CHLORIDE 0.9% 1000ML IV PRN (06:25)
[2021-06-29 06:29] LABS: CREATININE FOR GFR 4.02 MG/DL (0.70-1.30); GLOMERULAR FILTRATION RATE 15.3 (>35); MAGNESIUM LEVEL 1.7 MG/DL (1.8-2.4); PHOSPHORUS LEVEL 4.7 MG/DL (2.5-4.9); POTASSIUM SERUM 4.1 MEQ/L (3.5-5.1)
[2021-06-29 07:30] VITALS: BP 124/58
[2021-06-29] MEDS: GASTROGRAFIN SOLUTION 30ML PO SCH ×2 (08:00→08:07)
[2021-06-29] MEDS: SUCRALFATE SUSP 1GM/10ML UD PO SCH ×4 (08:07→23:00)
[2021-06-29] MEDS: (RENVELA) SEVELAMER **CARBONate** 800 MG TAB PO SCH ×3 (08:07→18:00)
[2021-06-29] MEDS: RANOLAZINE 500 MG ER TAB PO SCH ×2 (08:08→23:01)
[2021-06-29] MEDS: NITROGLYCERIN 0.4 MG/HR PATCH TD SCH (08:08)
[2021-06-29] MEDS: MIDODRINE 2.5 MG TAB PO SCH ×3 (08:09→16:00)
[2021-06-29] MEDS: PYRIDOSTIGMINE 60MG TABLET PO SCH ×2 (08:10→23:01)
[2021-06-29] MEDS: CALCIUM ACETATE 667MG GELCAP PO SCH ×3 (08:10→18:00)
[2021-06-29] MEDS: DOXYCYCLINE HYCLATE 100MG TABLET PO SCH (08:10)
[2021-06-29] MEDS: predniSONE 20 MG TAB PO SCH (08:10)
[2021-06-29] MEDS: DIGOXIN 0.125 MG TAB PO SCH (08:11)
[2021-06-29] MEDS: PANTOPRAZOLE 40MG VIAL (C9113 PER 1) IV SCH ×2 (08:12→23:00)
[2021-06-29] MEDS: MYCOPHENOLATE MOFETIL 250 MG CAP (J7517) PO SCH ×2 (08:12→23:01)
[2021-06-29] MEDS: HumaLOG INSULIN (NovoLOG) PER UNIT SC SCH ×4 (08:14→21:00)
[2021-06-29] MEDS: BUDESONIDE 0.5 MG/2 ML INHALATION SUSPENSION NEB SCH ×2 (08:19→21:13)
[2021-06-29] MEDS ORDERED: HEPARIN SOD (PORCINE) 5000UNITS/ML 1ML VIAL/SYRINGE SQ SCH (08:55)
[2021-06-29] MEDS: allopurinoL 100 MG TAB PO SCH (09:00)
[2021-06-29] MEDS: CEFDINIR 300 MG CAP (OMNICEF) PO SCH (09:47)
[2021-06-29] MEDS: READI-CAT 2 PO SCH ×2 (10:04→11:46)
[2021-06-29] MEDS ORDERED: DARBEPOETIN 100 MCG/0.5 ML *DIALYSIS* SYRINGE (J0882) IV SCH (12:00)
[2021-06-29 12:40] VITALS: BP 139/64
[2021-06-29 17:26] VITALS: BP 121/60
[2021-06-29 17:31] LABS: ALBUMIN 2.7 GM/DL (3.2-5.2); BILIRUBIN,TOTAL 0.5 MG/DL (0.2-1.0); CALCIUM LEVEL 8.8 MG/DL (8.8-10.2); CREATININE FOR GFR 1.89 MG/DL (0.70-1.30); GLOMERULAR FILTRATION RATE 36.6 (>35); POTASSIUM SERUM 3.7 MEQ/L (3.5-5.1)
[2021-06-29] MEDS ORDERED: FIDAXOMICIN 200 MG TAB (DIFICID) PO SCH (21:00)
[2021-06-29] MEDS: **NOTE PATIENT COMMENT** MISC XX SCH (21:00)
[2021-06-29] MEDS: VANCOMYCIN ORAL SOL 250MG/5ML ORAL SYRINGE PO SCH ×2 (23:00→23:02)
[2021-06-30] VITALS: BP 121/57
[2021-06-30 04:31] LABS: HEMATOCRIT 24.5 % (42.0-52.0); HEMOGLOBIN 7.7 g/dl (13.5-17.5); MEAN CORPUSCULAR HEMOGLOBIN 26.8 pg (27.0-33.0); MEAN CORPUSCULAR HGB CONC 31.4 g/dl (32.0-36.5); MEAN CORPUSCULAR VOLUME 85.4 fl (80.0-96.0); RED BLOOD COUNT 2.87 10^6/uL (4.30-6.10); WHITE BLOOD COUNT 10.4 10^3/uL (4.0-10.0)
[2021-06-30 04:32] LABS: PLATELET COUNT, AUTOMATED 39 10^3/uL (150-450)
[2021-06-30 04:48] LABS: ALBUMIN 2.2 GM/DL (3.2-5.2); BILIRUBIN,DIRECT 0.2 MG/DL (0.0-0.2); BILIRUBIN,TOTAL 0.5 MG/DL (0.2-1.0); MAGNESIUM LEVEL 1.6 MG/DL (1.8-2.4); PHOSPHORUS LEVEL 4.2 MG/DL (2.5-4.9); TOTAL PROTEIN 5.3 GM/DL (6.4-8.2)
[2021-06-30 04:55] LABS: ATYPICAL LYMPH 8 % (0-5); EOSINOPHILS 2 % (0-3); LYMPHOCYTES 74 % (16-44); MONOCYTES 6 % (0-5); NEUTROPHILS 10 % (28-66)
[2021-06-30 04:59] LABS: ANISOCYTOSIS 1+; PLATELET ESTIMATE MARKED DECREASE (NORMAL)
[2021-06-30] MEDS: VANCOMYCIN ORAL SOL 250MG/5ML ORAL SYRINGE PO SCH ×3 (05:53→18:10)
[2021-06-30] MEDS: HumaLOG INSULIN (NovoLOG) PER UNIT SC SCH ×4 (07:30→20:30)
[2021-06-30] MEDS: BUDESONIDE 0.5 MG/2 ML INHALATION SUSPENSION NEB SCH ×2 (08:38→20:25)
[2021-06-30 09:05] VITALS: BP 127/60
[2021-06-30] MEDS: (RENVELA) SEVELAMER **CARBONate** 800 MG TAB PO SCH ×3 (09:08→16:08)
[2021-06-30] MEDS: NITROGLYCERIN 0.4 MG/HR PATCH TD SCH (09:08)
[2021-06-30] MEDS: SUCRALFATE SUSP 1GM/10ML UD PO SCH ×4 (09:08→22:54)
[2021-06-30] MEDS: PYRIDOSTIGMINE 60MG TABLET PO SCH ×2 (09:09→22:54)
[2021-06-30] MEDS: CALCIUM ACETATE 667MG GELCAP PO SCH ×3 (09:09→16:08)
[2021-06-30] MEDS: allopurinoL 100 MG TAB PO SCH (09:09)
[2021-06-30] MEDS: predniSONE 20 MG TAB PO SCH (09:09)
[2021-06-30] MEDS: DIGOXIN 0.125 MG TAB PO SCH (09:11)
[2021-06-30] MEDS: MIDODRINE 2.5 MG TAB PO SCH ×2 (09:11→12:15)
[2021-06-30] MEDS: PANTOPRAZOLE 40MG VIAL (C9113 PER 1) IV SCH ×2 (09:11→22:53)
[2021-06-30] MEDS: MYCOPHENOLATE MOFETIL 250 MG CAP (J7517) PO SCH ×2 (09:11→22:53)
[2021-06-30] MEDS: RANOLAZINE 500 MG ER TAB PO SCH ×2 (09:11→22:53)
[2021-06-30 11:55] VITALS: BP 131/62
[2021-06-30 15:58] VITALS: BP 135/63
[2021-06-30] MEDS: MIDODRINE 5 MG TAB PO SCH (16:08)
[2021-06-30 16:11] VITALS: BP 127/62
[2021-06-30 17:22] LABS: INR 1.42; PROTHROMBIN TIME 17.8 SECONDS (12.7-14.5)
[2021-06-30 17:23] LABS: PARTIAL THROMBOPLASTIN TIME 40.9 SECONDS (25.9-37.0)
[2021-06-30 19:52] VITALS: BP 130/60
[2021-06-30] MEDS: **NOTE PATIENT COMMENT** MISC XX SCH (22:54)
[2021-07-01] VITALS: BP 130/60
[2021-07-01] MEDS: VANCOMYCIN ORAL SOL 250MG/5ML ORAL SYRINGE PO SCH ×5 (01:53→18:02)
[2021-07-01 04:00] VITALS: BP 107/51
[2021-07-01 06:41] LABS: HEMATOCRIT 25.6 % (42.0-52.0); HEMOGLOBIN 8.2 g/dl (13.5-17.5); MEAN CORPUSCULAR HEMOGLOBIN 27.2 pg (27.0-33.0); MEAN CORPUSCULAR VOLUME 84.8 fl (80.0-96.0); RED BLOOD COUNT 3.02 10^6/uL (4.30-6.10); WHITE BLOOD COUNT 13.9 10^3/uL (4.0-10.0)
[2021-07-01 06:42] LABS: PLATELET COUNT, AUTOMATED 60 10^3/uL (150-450)
[2021-07-01 07:05] LABS: CALCIUM LEVEL 8.6 MG/DL (8.8-10.2); CREATININE FOR GFR 3.77 MG/DL (0.70-1.30); GLOMERULAR FILTRATION RATE 16.5 (>35); MAGNESIUM LEVEL 1.6 MG/DL (1.8-2.4); PHOSPHORUS LEVEL 3.6 MG/DL (2.5-4.9); POTASSIUM SERUM 4.3 MEQ/L (3.5-5.1)
[2021-07-01] MEDS: BUDESONIDE 0.5 MG/2 ML INHALATION SUSPENSION NEB SCH ×2 (07:18→20:00)
[2021-07-01 07:27] LABS: ATYPICAL LYMPH 4 % (0-5); BLAST CELLS 2 % (0-0); EOSINOPHILS 3 % (0-3); LYMPHOCYTES 79 % (16-44); MONOCYTES 1 % (0-5); NEUTROPHILS 10 % (28-66)
[2021-07-01 07:29] LABS: SMUDGE CELLS 2+
[2021-07-01 07:30] LABS: PLATELET ESTIMATE MARKED DECREASE (NORMAL)
[2021-07-01] MEDS: HumaLOG INSULIN (NovoLOG) PER UNIT SC SCH ×4 (07:30→21:00)
[2021-07-01 07:31] LABS: ANISOCYTOSIS 1+; OVALOCYTES 1+; POIKILOCYTOSIS 1+; TEAR DROP CELLS 1+
[2021-07-01 08:00] VITALS: BP 142/63
[2021-07-01] MEDS ORDERED: SODIUM CHLORIDE 0.9% 1000ML IV PRN (08:20)
[2021-07-01] MEDS: SUCRALFATE SUSP 1GM/10ML UD PO SCH ×5 (08:38→21:00)
[2021-07-01] MEDS: MIDODRINE 5 MG TAB PO SCH ×4 (08:38→16:00)
[2021-07-01] MEDS: CALCIUM ACETATE 667MG GELCAP PO SCH ×4 (08:38→17:52)
[2021-07-01] MEDS: (RENVELA) SEVELAMER **CARBONate** 800 MG TAB PO SCH ×4 (08:38→17:52)
[2021-07-01] MEDS: PANTOPRAZOLE 40MG VIAL (C9113 PER 1) IV SCH ×2 (09:00→21:00)
[2021-07-01 12:00] VITALS: BP 117/57
[2021-07-01] MEDS: ONDANSETRON 4MG/2ML VIAL IV PRN (12:11)
[2021-07-01] MEDS: IPRATROPIUM 0.5MG/ALBUTEROL 2.5MG INH SOL UD 3ML (DUONEB) NEB PRN (12:21)
[2021-07-01] MEDS: allopurinoL 100 MG TAB PO SCH ×3 (13:00→21:00)
[2021-07-01] MEDS: MYCOPHENOLATE MOFETIL 250 MG CAP (J7517) PO SCH ×3 (13:00→21:00)
[2021-07-01] MEDS: RANOLAZINE 500 MG ER TAB PO SCH ×3 (13:00→21:00)
[2021-07-01] MEDS: DIGOXIN 0.125 MG TAB PO SCH ×2 (13:00→13:06)
[2021-07-01] MEDS: predniSONE 20 MG TAB PO SCH ×2 (13:00→13:05)
[2021-07-01] MEDS: PYRIDOSTIGMINE 60MG TABLET PO SCH ×3 (13:00→21:00)
[2021-07-01] MEDS: NITROGLYCERIN 0.4 MG/HR PATCH TD SCH (13:03)
[2021-07-01 13:52] LABS: INR 1.48; PROTHROMBIN TIME 18.3 SECONDS (12.7-14.5)
[2021-07-01 13:53] LABS: PARTIAL THROMBOPLASTIN TIME 43.9 SECONDS (25.9-37.0)
[2021-07-01 13:56] LABS: D-DIMER QUANT 1903.8 ng/ml (<500)
[2021-07-01] MEDS ORDERED: HEPARIN SOD (PORCINE) 5000UNITS/ML 1ML VIAL/SYRINGE SQ SCH (14:00)
[2021-07-01] MEDS ORDERED: HEPARIN SOD (PORCINE) 5000UNITS/ML 1ML VIAL/SYRINGE IV PRN (14:05)
[2021-07-01 14:40] LABS: ABG BASE EXCESS -0.1 (-2.0-2.0); ABG HCO3 23.5 MEQ/L (22.0-26.0); ABG O2 SATURATION 96.9 % (95.0-99.0); ABG PARTIAL PRESSURE CO2 34.4 mmHg (35.0-45.0); ABG PARTIAL PRESSURE O2 90.4 mmHg (75.0-100.0); ABG STANDARD HCO3 24.4 MEQ/L (22.0-26.0); ABG TOTAL CO2 24.6 MEQ/L (23.0-31.0); ABG pH (ARTERIAL) 7.453 UNITS (7.350-7.450)
[2021-07-01 15:09] LABS: PARTIAL THROMBOPLASTIN TIME 41.6 SECONDS (25.9-37.0)
[2021-07-01 16:00] VITALS: BP 108/57
[2021-07-01] MEDS: HEPARIN DRIP 25,000 UNITS in IV 1 EA IV SCH (16:41)
[2021-07-01 20:05] VITALS: BP 131/60
[2021-07-01] MEDS: **NOTE PATIENT COMMENT** MISC XX SCH (21:00)
[2021-07-01 21:07] LABS: HBV HBV DNA not detected IU/mL (.); HEPATITIS BE ANTIBODY Negative (Negative)
[2021-07-02] MEDS: ONDANSETRON 4MG/2ML VIAL IV PRN (00:39)
[2021-07-02] MEDS: VANCOMYCIN ORAL SOL 250MG/5ML ORAL SYRINGE PO SCH ×4 (00:54→16:31)
[2021-07-02] MEDS: MORPHINE 4 MG/ML 1ML VIAL/SYRINGE (J2270) IV PRN (02:51)
[2021-07-02 04:00] VITALS: BP 160/70
[2021-07-02 04:36] LABS: HEMATOCRIT 25.2 % (42.0-52.0); MEAN CORPUSCULAR HEMOGLOBIN 27.4 pg (27.0-33.0); MEAN CORPUSCULAR HGB CONC 31.7 g/dl (32.0-36.5); MEAN CORPUSCULAR VOLUME 86.3 fl (80.0-96.0); RED BLOOD COUNT 2.92 10^6/uL (4.30-6.10); WHITE BLOOD COUNT 15.2 10^3/uL (4.0-10.0)
[2021-07-02 04:39] LABS: PLATELET COUNT, AUTOMATED 82 10^3/uL (150-450)
[2021-07-02 05:15] LABS: CREATININE FOR GFR 3.29 MG/DL (0.70-1.30); GLOMERULAR FILTRATION RATE 19.3 (>35); MAGNESIUM LEVEL 1.7 MG/DL (1.8-2.4); PHOSPHORUS LEVEL 3.6 MG/DL (2.5-4.9)
[2021-07-02 05:32] LABS: BASOPHILS 1 % (0-1); LYMPHOCYTES 58 % (16-44); METAMYELOCYTES 2 % (0-0); MONOCYTES 9 % (0-5); NEUTROPHILS 6 % (28-66)
[2021-07-02 05:36] LABS: ATYPICAL LYMPH 17 % (0-5); BLAST CELLS 7 % (0-0); SMUDGE CELLS 2+
[2021-07-02 05:37] LABS: ANISOCYTOSIS 1+; OVALOCYTES 1+; PLATELET ESTIMATE DECREASED (NORMAL); POIKILOCYTOSIS 1+
[2021-07-02] MEDS: HumaLOG INSULIN (NovoLOG) PER UNIT SC SCH ×4 (07:30→21:00)
[2021-07-02] MEDS: BUDESONIDE 0.5 MG/2 ML INHALATION SUSPENSION NEB SCH ×2 (07:53→20:11)
[2021-07-02] MEDS: IPRATROPIUM 0.5MG/ALBUTEROL 2.5MG INH SOL UD 3ML (DUONEB) NEB PRN (07:54)
[2021-07-02 08:04] VITALS: BP 162/72
[2021-07-02] MEDS: MIDODRINE 5 MG TAB PO SCH ×3 (08:18→16:32)
[2021-07-02] MEDS: CALCIUM ACETATE 667MG GELCAP PO SCH ×3 (08:18→16:32)
[2021-07-02] MEDS: (RENVELA) SEVELAMER **CARBONate** 800 MG TAB PO SCH ×3 (08:18→16:32)
[2021-07-02] MEDS: SUCRALFATE SUSP 1GM/10ML UD PO SCH ×4 (08:18→21:30)
[2021-07-02] MEDS: allopurinoL 100 MG TAB PO SCH ×2 (09:52→21:30)
[2021-07-02] MEDS: DIGOXIN 0.125 MG TAB PO SCH (09:52)
[2021-07-02] MEDS: predniSONE 20 MG TAB PO SCH (09:53)
[2021-07-02] MEDS: PYRIDOSTIGMINE 60MG TABLET PO SCH ×2 (09:53→21:30)
[2021-07-02] MEDS: RANOLAZINE 500 MG ER TAB PO SCH ×2 (09:53→21:30)
[2021-07-02] MEDS: PANTOPRAZOLE 40MG VIAL (C9113 PER 1) IV SCH ×2 (09:53→21:29)
[2021-07-02] MEDS: MYCOPHENOLATE MOFETIL 250 MG CAP (J7517) PO SCH ×2 (09:53→21:29)
[2021-07-02] MEDS: NITROGLYCERIN 0.4 MG/HR PATCH TD SCH (09:54)
[2021-07-02] MEDS: PERCOCET 5MG/325MG TAB PO PRN ×2 (12:25→21:30)
[2021-07-02 12:58] VITALS: BP 158/70
[2021-07-02 16:33] VITALS: BP 138/63
[2021-07-02] MEDS: HEPARIN DRIP 25,000 UNITS in IV 1 EA IV SCH (18:15)
[2021-07-02 21:00] VITALS: BP 129/60
[2021-07-02] MEDS: **NOTE PATIENT COMMENT** MISC XX SCH (21:00)
[2021-07-03] VITALS (10 sets, daily range): BP systolic 119–136; BP diastolic 57–81
[2021-07-03] MEDS: VANCOMYCIN ORAL SOL 250MG/5ML ORAL SYRINGE PO SCH ×4 (00:39→18:09)
[2021-07-03 03:01] LABS: CALCIUM LEVEL 8.4 MG/DL (8.8-10.2); CREATININE FOR GFR 4.27 MG/DL (0.70-1.30); GLOMERULAR FILTRATION RATE 14.3 (>35); HEMATOCRIT 25.3 % (42.0-52.0); HEMOGLOBIN 7.9 g/dl (13.5-17.5); MAGNESIUM LEVEL 1.6 MG/DL (1.8-2.4); MEAN CORPUSCULAR HEMOGLOBIN 27.1 pg (27.0-33.0); MEAN CORPUSCULAR HGB CONC 31.2 g/dl (32.0-36.5); MEAN CORPUSCULAR VOLUME 86.9 fl (80.0-96.0); PHOSPHORUS LEVEL 3.7 MG/DL (2.5-4.9); PLATELET COUNT, AUTOMATED 103 10^3/uL (150-450); POTASSIUM SERUM 4.5 MEQ/L (3.5-5.1); RED BLOOD COUNT 2.91 10^6/uL (4.30-6.10); WHITE BLOOD COUNT 16.8 10^3/uL (4.0-10.0)
[2021-07-03 03:38] LABS: ATYPICAL LYMPH 9 % (0-5); LYMPHOCYTES 70 % (16-44); MONOCYTES 6 % (0-5); NEUTROPHILS 15 % (28-66); SMUDGE CELLS 1+
[2021-07-03 03:39] LABS: ANISOCYTOSIS 1+
[2021-07-03 03:40] LABS: OVALOCYTES 1+; TEAR DROP CELLS 1+
[2021-07-03 03:41] LABS: PLATELET ESTIMATE DECREASED (NORMAL)
[2021-07-03] MEDS: BUDESONIDE 0.5 MG/2 ML INHALATION SUSPENSION NEB SCH ×2 (07:39→20:02)
[2021-07-03] MEDS ORDERED: IMBR1CAP PO ×2 (08:58→14:53)
[2021-07-03] MEDS: RANOLAZINE 500 MG ER TAB PO SCH ×3 (09:00→21:18)
[2021-07-03] MEDS: allopurinoL 100 MG TAB PO SCH ×3 (09:00→21:18)
[2021-07-03] MEDS: MYCOPHENOLATE MOFETIL 250 MG CAP (J7517) PO SCH ×3 (09:00→21:17)
[2021-07-03] MEDS: PYRIDOSTIGMINE 60MG TABLET PO SCH ×3 (09:00→21:18)
[2021-07-03] MEDS: HumaLOG INSULIN (NovoLOG) PER UNIT SC SCH ×4 (09:21→20:26)
[2021-07-03] MEDS: PANTOPRAZOLE 40MG VIAL (C9113 PER 1) IV SCH ×2 (09:22→21:17)
[2021-07-03] MEDS: (RENVELA) SEVELAMER **CARBONate** 800 MG TAB PO SCH ×4 (09:22→18:00)
[2021-07-03] MEDS: CALCIUM ACETATE 667MG GELCAP PO SCH ×4 (09:22→18:00)
[2021-07-03] MEDS: SUCRALFATE SUSP 1GM/10ML UD PO SCH ×5 (09:23→21:17)
[2021-07-03] MEDS: MIDODRINE 5 MG TAB PO SCH ×4 (09:24→16:12)
[2021-07-03] MEDS: DIGOXIN 0.125 MG TAB PO SCH ×2 (09:24→12:52)
[2021-07-03] MEDS: predniSONE 20 MG TAB PO SCH (09:25)
[2021-07-03] MEDS: NITROGLYCERIN 0.4 MG/HR PATCH TD SCH (09:25)
[2021-07-03] MEDS: PERCOCET 5MG/325MG TAB PO PRN (11:18)
[2021-07-03] MEDS: ONDANSETRON 4MG/2ML VIAL IV PRN (15:40)
[2021-07-03] MEDS: **NOTE PATIENT COMMENT** MISC XX SCH (21:18)
[2021-07-03] MEDS: HEPARIN DRIP 25,000 UNITS in IV 1 EA IV SCH (23:56)
[2021-07-04] VITALS (7 sets, daily range): BP systolic 119–148; BP diastolic 58–66
[2021-07-04] MEDS: PERCOCET 5MG/325MG TAB PO PRN ×3 (01:02→22:38)
[2021-07-04] MEDS ORDERED: SODIUM CHLORIDE 0.9% 1000ML IV PRN (06:00)
[2021-07-04] MEDS: VANCOMYCIN ORAL SOL 250MG/5ML ORAL SYRINGE PO SCH ×4 (06:06→18:28)
[2021-07-04 06:24] LABS: HEMATOCRIT 29.2 % (42.0-52.0); HEMOGLOBIN 9.4 g/dl (13.5-17.5); MEAN CORPUSCULAR HEMOGLOBIN 27.9 pg (27.0-33.0); MEAN CORPUSCULAR HGB CONC 32.2 g/dl (32.0-36.5); MEAN CORPUSCULAR VOLUME 86.6 fl (80.0-96.0); RED BLOOD COUNT 3.37 10^6/uL (4.30-6.10); WHITE BLOOD COUNT 19.4 10^3/uL (4.0-10.0)
[2021-07-04 06:31] LABS: PLATELET COUNT, AUTOMATED 97 10^3/uL (150-450)
[2021-07-04 06:42] LABS: INR 1.43; PROTHROMBIN TIME 17.9 SECONDS (12.7-14.5)
[2021-07-04 06:45] LABS: PARTIAL THROMBOPLASTIN TIME 100.4 SECONDS (25.9-37.0)
[2021-07-04 07:02] LABS: ALBUMIN 2.3 GM/DL (3.2-5.2); BILIRUBIN,TOTAL 0.8 MG/DL (0.2-1.0); CALCIUM LEVEL 8.8 MG/DL (8.8-10.2); CREATININE FOR GFR 5.01 MG/DL (0.70-1.30); GLOMERULAR FILTRATION RATE 11.9 (>35); MAGNESIUM LEVEL 1.7 MG/DL (1.8-2.4); PHOSPHORUS LEVEL 3.3 MG/DL (2.5-4.9); POTASSIUM SERUM 4.5 MEQ/L (3.5-5.1)
[2021-07-04] MEDS: BUDESONIDE 0.5 MG/2 ML INHALATION SUSPENSION NEB SCH ×2 (07:25→20:01)
[2021-07-04] MEDS: HumaLOG INSULIN (NovoLOG) PER UNIT SC SCH ×4 (07:30→22:00)
[2021-07-04 07:45] LABS: ATYPICAL LYMPH 21 % (0-5); BASOPHILS 1 % (0-1); EOSINOPHILS 1 % (0-3); LYMPHOCYTES 56 % (16-44); MONOCYTES 3 % (0-5); NEUTROPHILS 18 % (28-66)
[2021-07-04 07:47] LABS: OVALOCYTES 2+; SMUDGE CELLS 2+
[2021-07-04 07:48] LABS: PLATELET ESTIMATE DECREASED (NORMAL)
[2021-07-04] MEDS: CALCIUM ACETATE 667MG GELCAP PO SCH ×3 (07:50→18:28)
[2021-07-04] MEDS: SUCRALFATE SUSP 1GM/10ML UD PO SCH ×4 (07:50→22:21)
[2021-07-04] MEDS: PYRIDOSTIGMINE 60MG TABLET PO SCH ×2 (07:50→22:20)
[2021-07-04] MEDS: predniSONE 20 MG TAB PO SCH (07:50)
[2021-07-04] MEDS: allopurinoL 100 MG TAB PO SCH ×2 (07:50→22:20)
[2021-07-04] MEDS: MYCOPHENOLATE MOFETIL 250 MG CAP (J7517) PO SCH ×2 (07:50→22:21)
[2021-07-04] MEDS: (RENVELA) SEVELAMER **CARBONate** 800 MG TAB PO SCH ×3 (07:50→18:27)
[2021-07-04] MEDS: RANOLAZINE 500 MG ER TAB PO SCH ×2 (07:50→22:19)
[2021-07-04] MEDS: MIDODRINE 5 MG TAB PO SCH ×3 (08:30→15:14)
[2021-07-04] MEDS: ONDANSETRON 4MG/2ML VIAL IV PRN ×2 (08:50→15:15)
[2021-07-04] MEDS: NITROGLYCERIN 0.4 MG/HR PATCH TD SCH (10:39)
[2021-07-04] MEDS: PANTOPRAZOLE 40MG VIAL (C9113 PER 1) IV SCH ×2 (10:40→22:19)
[2021-07-04] MEDS: METOPROLOL TART 25 MG TABLET PO SCH ×2 (10:55→22:21)
[2021-07-04 10:56] LABS: D-DIMER QUANT 865.35 ng/ml (<500)
[2021-07-04] MEDS: **NOTE PATIENT COMMENT** MISC XX SCH (22:17)
[2021-07-05] VITALS (9 sets, daily range): BP systolic 110–130; BP diastolic 53–75
[2021-07-05] MEDS: VANCOMYCIN ORAL SOL 250MG/5ML ORAL SYRINGE PO SCH ×5 (00:20→23:46)
[2021-07-05] MEDS: HEPARIN DRIP 25,000 UNITS in IV 1 EA IV SCH (04:12)
[2021-07-05] MEDS: BUDESONIDE 0.5 MG/2 ML INHALATION SUSPENSION NEB SCH ×2 (07:42→20:27)
[2021-07-05] MEDS: HumaLOG INSULIN (NovoLOG) PER UNIT SC SCH ×4 (08:00→21:00)
[2021-07-05 08:48] LABS: HEMATOCRIT 27.7 % (42.0-52.0); HEMOGLOBIN 8.9 g/dl (13.5-17.5); MEAN CORPUSCULAR HEMOGLOBIN 27.4 pg (27.0-33.0); MEAN CORPUSCULAR HGB CONC 32.1 g/dl (32.0-36.5); MEAN CORPUSCULAR VOLUME 85.2 fl (80.0-96.0); RED BLOOD COUNT 3.25 10^6/uL (4.30-6.10); WHITE BLOOD COUNT 19.1 10^3/uL (4.0-10.0)
[2021-07-05 08:51] LABS: PLATELET COUNT, AUTOMATED 71 10^3/uL (150-450)
[2021-07-05 08:59] LABS: INR 1.51; PROTHROMBIN TIME 18.6 SECONDS (12.7-14.5)
[2021-07-05 09:01] LABS: PARTIAL THROMBOPLASTIN TIME 75.8 SECONDS (25.9-37.0)
[2021-07-05 09:18] LABS: ATYPICAL LYMPH 10 % (0-5); LYMPHOCYTES 63 % (16-44); METAMYELOCYTES 1 % (0-0); MONOCYTES 6 % (0-5); NEUTROPHILS 19 % (28-66)
[2021-07-05 09:19] LABS: SMUDGE CELLS 3+
[2021-07-05 09:20] LABS: OVALOCYTES 3+; PLATELET ESTIMATE DECREASED (NORMAL)
[2021-07-05 10:15] LABS: CALCIUM LEVEL 8.4 MG/DL (8.8-10.2); CREATININE FOR GFR 4.85 MG/DL (0.70-1.30); GLOMERULAR FILTRATION RATE 12.3 (>35); MAGNESIUM LEVEL 1.8 MG/DL (1.8-2.4); PHOSPHORUS LEVEL 3.4 MG/DL (2.5-4.9); POTASSIUM SERUM 4.3 MEQ/L (3.5-5.1)
[2021-07-05] MEDS: ONDANSETRON 4MG/2ML VIAL IV PRN ×3 (10:27→23:10)
[2021-07-05] MEDS: MYCOPHENOLATE MOFETIL 250 MG CAP (J7517) PO SCH ×2 (10:28→21:07)
[2021-07-05] MEDS: NITROGLYCERIN 0.4 MG/HR PATCH TD SCH (10:28)
[2021-07-05] MEDS: PERCOCET 5MG/325MG TAB PO PRN ×2 (10:29→18:16)
[2021-07-05] MEDS: allopurinoL 100 MG TAB PO SCH ×2 (10:29→21:08)
[2021-07-05] MEDS: SUCRALFATE SUSP 1GM/10ML UD PO SCH ×4 (10:29→21:08)
[2021-07-05] MEDS: PANTOPRAZOLE 40MG VIAL (C9113 PER 1) IV SCH ×2 (10:29→21:05)
[2021-07-05] MEDS: (RENVELA) SEVELAMER **CARBONate** 800 MG TAB PO SCH ×3 (10:30→18:00)
[2021-07-05] MEDS: METOPROLOL TART 25 MG TABLET PO SCH ×2 (10:30→21:07)
[2021-07-05] MEDS: RANOLAZINE 500 MG ER TAB PO SCH ×2 (10:30→21:08)
[2021-07-05] MEDS: CALCIUM ACETATE 667MG GELCAP PO SCH ×3 (10:31→18:00)
[2021-07-05] MEDS: predniSONE 20 MG TAB PO SCH (10:31)
[2021-07-05] MEDS: PYRIDOSTIGMINE 60MG TABLET PO SCH ×2 (10:31→21:08)
[2021-07-05] MEDS: MIDODRINE 5 MG TAB PO SCH ×2 (13:46→17:30)
[2021-07-05] MEDS: MORPHINE 4 MG/ML 1ML VIAL/SYRINGE (J2270) IV PRN (21:26)
[2021-07-05] MEDS: **NOTE PATIENT COMMENT** MISC XX SCH (21:27)
[2021-07-06] VITALS (7 sets, daily range): BP systolic 117–138; BP diastolic 54–62
[2021-07-06] MEDS ORDERED: SODIUM CHLORIDE 0.9% 1000ML IV PRN (06:00)
[2021-07-06 06:39] LABS: CALCIUM LEVEL 8.3 MG/DL (8.8-10.2); CREATININE FOR GFR 5.64 MG/DL (0.70-1.30); GLOMERULAR FILTRATION RATE 10.4 (>35); MAGNESIUM LEVEL 1.8 MG/DL (1.8-2.4); PHOSPHORUS LEVEL 4.7 MG/DL (2.5-4.9); POTASSIUM SERUM 4.9 MEQ/L (3.5-5.1)
[2021-07-06] MEDS: VANCOMYCIN ORAL SOL 250MG/5ML ORAL SYRINGE PO SCH ×3 (06:40→16:55)
[2021-07-06] MEDS: PERCOCET 5MG/325MG TAB PO PRN ×2 (06:41→15:59)
[2021-07-06] MEDS ORDERED: CEFEPIME HCL 1 GM in D5W MINI-BAG PLUS 50 ML IV ONE (07:00)
[2021-07-06] MEDS: HumaLOG INSULIN (NovoLOG) PER UNIT SC SCH ×4 (07:30→21:00)
[2021-07-06] MEDS: SUCRALFATE SUSP 1GM/10ML UD PO SCH ×4 (07:30→21:16)
[2021-07-06] MEDS: BUDESONIDE 0.5 MG/2 ML INHALATION SUSPENSION NEB SCH ×2 (07:42→20:00)
[2021-07-06] MEDS: PANTOPRAZOLE 40MG VIAL (C9113 PER 1) IV SCH ×2 (07:51→21:15)
[2021-07-06] MEDS: PYRIDOSTIGMINE 60MG TABLET PO SCH ×2 (07:52→21:00)
[2021-07-06] MEDS: allopurinoL 100 MG TAB PO SCH ×2 (07:52→21:00)
[2021-07-06] MEDS: RANOLAZINE 500 MG ER TAB PO SCH ×2 (07:54→21:00)
[2021-07-06] MEDS: MYCOPHENOLATE MOFETIL 250 MG CAP (J7517) PO SCH ×2 (07:55→21:00)
[2021-07-06] MEDS: predniSONE 20 MG TAB PO SCH (07:55)
[2021-07-06] MEDS: (RENVELA) SEVELAMER **CARBONate** 800 MG TAB PO SCH ×3 (07:55→16:55)
[2021-07-06] MEDS: MIDODRINE 5 MG TAB PO SCH ×3 (07:55→16:00)
[2021-07-06] MEDS: CALCIUM ACETATE 667MG GELCAP PO SCH ×3 (07:56→16:55)
[2021-07-06] MEDS: METOPROLOL TART 25 MG TABLET PO SCH ×2 (07:57→21:00)
[2021-07-06] MEDS: NITROGLYCERIN 0.4 MG/HR PATCH TD SCH (07:58)
[2021-07-06] MEDS: HEPARIN DRIP 25,000 UNITS in IV 1 EA IV SCH (08:13)
[2021-07-06] MEDS: ONDANSETRON 4MG/2ML VIAL IV PRN (12:26)
[2021-07-06] MEDS: MORPHINE 4 MG/ML 1ML VIAL/SYRINGE (J2270) IV PRN (12:27)
[2021-07-06 12:41] LABS: HEMATOCRIT 29.2 % (42.0-52.0); HEMOGLOBIN 9.2 g/dl (13.5-17.5); MEAN CORPUSCULAR HEMOGLOBIN 27.2 pg (27.0-33.0); MEAN CORPUSCULAR HGB CONC 31.5 g/dl (32.0-36.5); MEAN CORPUSCULAR VOLUME 86.4 fl (80.0-96.0); RED BLOOD COUNT 3.38 10^6/uL (4.30-6.10); WHITE BLOOD COUNT 21.2 10^3/uL (4.0-10.0)
[2021-07-06 12:46] LABS: PLATELET COUNT, AUTOMATED 74 10^3/uL (150-450)
[2021-07-06 12:51] LABS: INR 1.77
[2021-07-06 12:53] LABS: PARTIAL THROMBOPLASTIN TIME 101.2 SECONDS (25.9-37.0)
[2021-07-06] MEDS ORDERED: **VANCO AFTER HD** MISC XX SCH (16:00)
[2021-07-06] MEDS ORDERED: VANCOMYCIN HCL 1,000 MG, VIAL MATE ADAPTER 1 EACH in NS 250 ML IV SCH (16:00)
[2021-07-06] MEDS: **NOTE PATIENT COMMENT** MISC XX SCH (21:00)
[2021-07-07 00:20] VITALS: BP 129/62
[2021-07-07 04:00] VITALS: BP 125/59
[2021-07-07 04:15] LABS: HEMATOCRIT 27.1 % (42.0-52.0); HEMOGLOBIN 8.7 g/dl (13.5-17.5); MEAN CORPUSCULAR HEMOGLOBIN 27.6 pg (27.0-33.0); MEAN CORPUSCULAR HGB CONC 32.1 g/dl (32.0-36.5); RED BLOOD COUNT 3.15 10^6/uL (4.30-6.10); WHITE BLOOD COUNT 23.1 10^3/uL (4.0-10.0)
[2021-07-07 04:18] LABS: PLATELET COUNT, AUTOMATED 68 10^3/uL (150-450)
[2021-07-07 04:26] LABS: D-DIMER QUANT 548.92 ng/ml (<500)
[2021-07-07 04:38] LABS: ANISOCYTOSIS 1+; ATYPICAL LYMPH 17 % (0-5); EOSINOPHILS 2 % (0-3); LYMPHOCYTES 66 % (16-44); MONOCYTES 4 % (0-5); NEUTROPHILS 11 % (28-66); PLATELET ESTIMATE MARKED DECREASE (NORMAL); SMUDGE CELLS 1+
[2021-07-07 04:39] LABS: POIKILOCYTOSIS 1+; POLYCHROMASIA 1+
[2021-07-07 05:05] LABS: ALBUMIN 2.3 GM/DL (3.2-5.2); BILIRUBIN,TOTAL 0.6 MG/DL (0.2-1.0); CALCIUM LEVEL 8.3 MG/DL (8.8-10.2); CREATININE FOR GFR 6.44 MG/DL (0.70-1.30); GLOMERULAR FILTRATION RATE 8.9 (>35); MAGNESIUM LEVEL 1.9 MG/DL (1.8-2.4); PHOSPHORUS LEVEL 5.1 MG/DL (2.5-4.9); POTASSIUM SERUM 4.6 MEQ/L (3.5-5.1); TOTAL PROTEIN 4.9 GM/DL (6.4-8.2)
[2021-07-07] MEDS: VANCOMYCIN ORAL SOL 250MG/5ML ORAL SYRINGE PO SCH ×2 (06:00)
[2021-07-07 07:00] LABS: INR 1.67; PROTHROMBIN TIME 20.1 SECONDS (12.7-14.5)
[2021-07-07 07:07] LABS: PARTIAL THROMBOPLASTIN TIME 128.3 SECONDS (25.9-37.0)
[2021-07-07] MEDS: HumaLOG INSULIN (NovoLOG) PER UNIT SC SCH (07:30)
[2021-07-07] MEDS: BUDESONIDE 0.5 MG/2 ML INHALATION SUSPENSION NEB SCH (07:34)
[2021-07-07 08:00] VITALS: BP 125/62
[2021-07-07] MEDS: NITROGLYCERIN 0.4 MG/HR PATCH TD SCH (09:00)
[2021-07-07] MEDS: PYRIDOSTIGMINE 60MG TABLET PO SCH (09:00)
[2021-07-07] MEDS: predniSONE 20 MG TAB PO SCH (09:00)
[2021-07-07] MEDS: MYCOPHENOLATE MOFETIL 250 MG CAP (J7517) PO SCH (09:00)
[2021-07-07] MEDS: allopurinoL 100 MG TAB PO SCH (09:00)
[2021-07-07] MEDS: RANOLAZINE 500 MG ER TAB PO SCH (09:00)
[2021-07-07] MEDS: METOPROLOL TART 25 MG TABLET PO SCH (09:00)
[2021-07-07] MEDS: CALCIUM ACETATE 667MG GELCAP PO SCH (09:13)
[2021-07-07] MEDS: MIDODRINE 5 MG TAB PO SCH (09:13)
[2021-07-07] MEDS: (RENVELA) SEVELAMER **CARBONate** 800 MG TAB PO SCH (09:13)
[2021-07-07] MEDS: SUCRALFATE SUSP 1GM/10ML UD PO SCH (09:13)
[2021-07-07] MEDS: PANTOPRAZOLE 40MG VIAL (C9113 PER 1) IV SCH (09:15)
[2021-07-07] MEDS: ONDANSETRON 4MG/2ML VIAL IV PRN (09:16)
[2021-07-07] MEDS: MORPHINE 4 MG/ML 1ML VIAL/SYRINGE (J2270) IV PRN (09:27)
[2021-07-07 12:00] VITALS: BP 126/57
[2021-07-07] MEDS ORDERED: FLEET ENEMA PR PRN (12:15)
[2021-07-07] MEDS ORDERED: ONDANSETRON 4 MG ORAL DISINTEGRATING TAB PO PRN (12:15)
[2021-07-07] MEDS ORDERED: MORPHINE 10MG/0.5ML ORAL CONCENTRATE SOLUTION U/D SL PRN (12:15)
[2021-07-07] MEDS ORDERED: ACETAMINOPHEN 650 MG SUPP PR PRN (12:15)
[2021-07-07] MEDS ORDERED: SCOPOLAMINE 1MG TRANSDERMAL PATCH TOP PRN (12:15)
[2021-07-07] MEDS ORDERED: LORazepam 2 MG/ML VIAL IV PRN (12:15)
[2021-07-07] MEDS ORDERED: BISACODYL 10 MG SUPP PR PRN (12:15)
[2021-07-07] MEDS ORDERED: ATROPINE SULFATE 1% OP SOLN 2 ML BTL SL PRN (12:15)
[2021-07-07] MEDS ORDERED: LORazepam 1 MG TAB PO PRN (12:15)
[2021-07-07] MEDS ORDERED: ONDANSETRON 4MG/2ML VIAL IV PRN (12:15)
[2021-07-07] MEDS ORDERED: HYOSCYAMINE SULFATE 0.125 MG SUBL TABLET PO PRN (12:15)
[2021-07-07 16:00] VITALS: BP 122/58
[2021-07-07] MEDS ORDERED: CEFEPIME HCL 1 GM in D5W MINI-BAG PLUS 50 ML IV SCH (16:00)
[2021-07-07 20:00] VITALS: BP 128/60
[2021-07-07] MEDS: PERCOCET 5MG/325MG TAB PO PRN (23:47)
[2021-07-08] MEDS: ONDANSETRON 4MG/2ML VIAL IV PRN (01:08)
[2021-07-08] MEDS: diphenhydrAMINE 50MG/ML VIAL (J1200) IV PRN (01:08)
[2021-07-08] MEDS: MORPHINE 4 MG/ML 1ML VIAL/SYRINGE (J2270) IV PRN (01:09)
[2021-07-09] MEDS: ONDANSETRON 4MG/2ML VIAL IV PRN ×2 (02:18→23:03)
[2021-07-09] MEDS: diphenhydrAMINE 50MG/ML VIAL (J1200) IV PRN ×2 (02:18→23:04)
[2021-07-09] MEDS: MORPHINE 4 MG/ML 1ML VIAL/SYRINGE (J2270) IV PRN ×2 (02:19→23:24)
[2021-07-09 15:10] LABS: BODY FLUID CULTURE Not indicated. (.); LEGIONELLA ANTIGEN URINE Negative (Negative); ORGANISM ID Not indicated. (.); SPECIMEN SOURCE Urine (.); URINE STREP PNEUMONIAE ANTIGEN Negative (Negative)
[2021-07-11] MEDS ORDERED: ATIV1TAB10 PO (10:02)
[2021-07-11] MEDS ORDERED: MORP1SOL5 PO (10:02)
[2021-07-11] MEDS ORDERED: HYOS125TA PO (10:02)
[2021-07-11 22:00] VITALS: BP 102/52
== END 2021-07-12 08:58 | disposition hospice, home (50) | DRG 371 ==
LOC: M ED 15:25 → M ED INP 19:43 → M MSPAV 21:11 → M PCU 06-22 17:10 → M MSPAV 07-08
PROVIDERS: ADMIT Family Medicine; ATTEND Family Medicine
PROC: 30233N1 Transfusion of Nonautologous Red Blood Cells into Peripheral Vein, Percutaneous Approach (ICD-10-PCS; 2021-06-17)
PROC: 30233J1 Transfusion of Nonautologous Serum Albumin into Peripheral Vein, Percutaneous Approach (ICD-10-PCS; 2021-06-21)
PROC: 02H633Z Insertion of Infusion Device into Right Atrium, Percutaneous Approach (ICD-10-PCS; 2021-06-28)
PROC: 5A1D70Z Performance of Urinary Filtration, Intermittent, Less than 6 Hours Per Day (ICD-10-PCS; 2021-06-28)
PROC: 0JH63XZ Insertion of Tunneled Vascular Access Device into Chest Subcutaneous Tissue and Fascia, Percutaneous Approach (ICD-10-PCS; principal; 2021-06-28 12:30)
DX: A04.72 Enterocolitis due to Clostridium difficile, not specified as recurrent (principal); J69.0 Pneumonitis due to inhalation of food and vomit; I50.33 Acute on chronic diastolic (congestive) heart failure; N18.4 Chronic kidney disease, stage 4 (severe); C83.18 Mantle cell lymphoma, lymph nodes of multiple sites; D62 Acute posthemorrhagic anemia; C78.5 Secondary malignant neoplasm of large intestine and rectum; E46 Unspecified protein-calorie malnutrition; E87.2 Acidosis; I13.0 Hypertensive heart and chronic kidney disease with heart failure and stage 1 through stage 4 chronic kidney disease, or unspecified chronic kidney disease; E87.1 Hypo-osmolality and hyponatremia; I25.10 Atherosclerotic heart disease of native coronary artery without angina pectoris; I48.91 Unspecified atrial fibrillation; E11.22 Type 2 diabetes mellitus with diabetic chronic kidney disease; Z51.5 Encounter for palliative care; Z66 Do not resuscitate; R53.1 Weakness; J45.909 Unspecified asthma, uncomplicated; G70.00 Myasthenia gravis without (acute) exacerbation; R06.6 Hiccough; N40.0 Benign prostatic hyperplasia without lower urinary tract symptoms; L89.152 Pressure ulcer of sacral region, stage 2; R63.0 Anorexia; Z20.822 Contact with and (suspected) exposure to COVID-19; D69.6 Thrombocytopenia, unspecified; Z95.0 Presence of cardiac pacemaker; Z79.01 Long term (current) use of anticoagulants; Z95.1 Presence of aortocoronary bypass graft; Z79.82 Long term (current) use of aspirin; Z95.828 Presence of other vascular implants and grafts; Z79.4 Long term (current) use of insulin; Z79.899 Other long term (current) drug therapy; Z88.8 Allergy status to other drugs, medicaments and biological substances; Z98.49 Cataract extraction status, unspecified eye; Z96.651 Presence of right artificial knee joint